=== PATIENT | male | born 1970 | race Caucasian/White ===

== ENCOUNTER 2016-06-30 12:05 | Emergency (ER) | payer MEDICARE, OTHER ==
--- NOTE | 2016-06-30 13:44 | XR ---
EXAMINATION TYPE: XR chest 2V DATE OF EXAM: 06/30/2016 1:35 PM COMPARISON: 12/04/2014 HISTORY: 45-year-old male with pain TECHNIQUE: PA and lateral views FINDINGS: The cardiomediastinal silhouette, aorta, and pulmonary vasculature are within normal limits. There is hyperinflation. Lungs and pleural spaces are clear. IMPRESSION: Hyperinflation which could relate to depth of inspiration or underlying emphysema. Clinically correla te. Otherwise, no acute cardiopulmonary process.
[2016-06-30 13:47] LABS: Basophils % (A) 1 %; CHCM 34.7; Eosinophils # (A) 0.2 k/uL (0-0.7); Eosinophils % (A) 3 %; HCT 49.4 % (39.0-53.0); HDW 2.38; HGB 16.7 gm/dL (13.0-17.5); Luc # (Auto) 0.18; Luc % (Auto) 3; Lymphocytes # (A) 1.5 k/uL (1.0-4.8); Lymphocytes % (A) 23 %; MCH 32.3 pg (25.0-35.0); MCHC 33.8 g/dL (31.0-37.0); MCV 95.4 fL (80.0-100.0); Mean Platelet Volume 6.8; Monocytes # (A) 0.3 k/uL (0-1.0); Monocytes % (A) 5 %; Neutrophils # (A) 4.2 k/uL (1.3-7.7); Neutrophils % (A) 66 %; RBC 5.18 m/uL (4.30-5.90); RDW 12.9 % (11.5-15.5); WBC 6.4 k/uL (3.8-10.6); WBC (Perox) 6.42
[2016-06-30 13:57] LABS: INR 1.4 (<1.1); Partial Thromboplastin Time 25.7 sec (22.0-30.0); Prothrombin Time 13.7 sec (9.0-12.0)
[2016-06-30 14:27] LABS: Anion Gap 10 mmol/L; Blood Urea Nitrogen 17 mg/dL (9-20); Calcium 9.6 mg/dL (8.4-10.2); Carbon Dioxide 27 mmol/L (22-30); Chloride 104 mmol/L (98-107); Glucose 97 mg/dL (74-99); Non-African American GFR(MDRD) >60 (>60 ml/min/1.73 sqM); Potassium 4.7 mmol/L (3.5-5.1); Sodium 141 mmol/L (137-145)
[2016-06-30] MEDS ORDERED: RX INFO: IV CONTRAST WAS GIVEN 1 EACH MISC MISCELLANE PRN (14:56)
--- NOTE | 2016-06-30 15:31 | CT ---
EXAMINATION TYPE: CT angio chest DATE OF EXAM: 06/30/2016 3:22 PM COMPARISON: NONE HISTORY: Pt states of left side pectoral pain, hx of PE. CT DLP: 157.6 mGycm CONTRAST: CT chest with contrast and 3D reconstruction with MIP imaging is performed with IV Contrast, patient injected with 80 mL of Omnipaque 350. Contrast-enhanced CT of the chest was performed through the course of the pulmonary arteries with rosina g and mediastinal window settings submitted. 3D reconstruction with MIP imaging was also performed. PULMONARY ARTERIES: The pulmonary arteries and their major tributaries are patent. I do not see jairo dence for sizable filling defect to suggest pulmonary embolic process. LUNGS: The lungs are clear and free of infiltrate. No evidence for atelectasis. No pulmonary nodule or mass is detected. No pleural effusion. MEDIASTINUM: Thoracic aorta is of normal caliber . The heart is not enlarged. No evidence for media stinal mass. No mediastinal lymph nodes greater than 1cm. HILAR STRUCTURES: No evidence for mass. No hilar lymph nodes greater than 1 cm. UPPER ABDOMEN: No significant abnormality is seen. IMPRESSION: 1. No evidence for Pulmonary embolism at this time.
[2016-06-30 17:08] VITALS: PULSE 78
--- NOTE | 2016-06-30 17:09 | ED ---
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 Patient states he woke up with it this morning. Patient tried Motrin without relief. Patient states because of his chronic pain he does have opiates and muscle relaxants for which he did not try. Patient got on the Internet and saw all things that could it could be so he came to the emergency room. Patient denies fever, chills, shortness breath, nausea, vomiting, diarrhea, abdominal pain. Patient states he was recently treated for Trichomonas and is currently on Flagyl. - Related Data Home Medications Medication Instructions Recorded Confirmed Albuterol Inhaler [Ventolin Hfa 2 puff INHALATION RT-TID PRN 02/13/14 06/30/16 Inhaler] Citalopram Hydrobromide [CeleXA] 20 mg PO DAILY 05/28/14 06/30/16 Montelukast [Singulair] 10 mg PO DAILY 10/23/14 06/30/16 Fluticasone Propionate [Flonase 1 spray EA NOSTRIL BID 10/30/14 06/30/16 Allergy Relief] Omeprazole [PriLOSEC] 20 mg PO AC-BID 10/30/14 06/30/16 Aspirin EC [Ecotrin Low Dose] 81 mg PO DAILY 06/30/16 06/30/16 Docusate [Colace] 100 mg PO DAILY PRN 06/30/16 06/30/16 Gabapentin [Neurontin] 300 mg PO TID 06/30/16 06/30/16 Hydrocodone/Acetaminophen [[place] 1 tab PO Q4HR PRN 06/30/16 06/30/16 7.5-325] Ibuprofen [Motrin] 800 mg PO TID PRN 06/30/16 06/30/16 Morphine Sulfate [Morphine Sulfate 15 mg PO Q12H 06/30/16 06/30/16 ER] Warfarin [Coumadin] 10 mg PO SUTUTHSA 06/30/16 06/30/16 Warfarin [Coumadin] 15 mg PO MOWEFR 06/30/16 06/30/16 metroNIDAZOLE [Flagyl] 500 mg PO BID 06/30/16 06/30/16 tiZANidine HCL [Zanaflex] 4 mg PO TID PRN 06/30/16 06/30/16 Allergies Allergy/AdvReac Type Severity Reaction Status Date / Time shellfish derived AdvReac tingling Verified 06/30/16 12:50 in throat Review of Systems ROS Statement: Those systems with pertinent positive or pertinent negative responses have been documented in the HPI. Constitutional: No fever and no chills. HENT: No congestion, no rhinorrhea and no sore throat. Eyes: No discharge and no redness. Respiratory: No cough and no shortness of breath. Cardiovascular: +chest pain and no palpitations. Gastrointestinal: No nausea, no vomiting, no abdominal pain and no diarrhea. Genitourinary: No dysuria and no hematuria. Musculoskeletal: No back pain and no arthralgias. Skin: No pallor and no rash. Neurological: No dizziness and No headaches. ROS Other: All systems not noted in ROS Statement are negative. EKG Findings - EKG Comments: EKG Findings:: EKG shows a ventricular rate of 84 bpm. Normal sinus rhythm. DC interval 154 ms, QRS duration 90 ms, QTC [address] or T-wave changes. Past Medical History Past Medical History: Asthma, Cancer, GERD/Reflux, Musculoskeletal Disorder, Pulmonary Embolus (PE) Additional Past Medical History / Comment(s): heart murmur-no tx., hx colon cancer, hx. bowel obstruction, bulging discs, INCISIONAL HERNIA, CONSTIPATION History of Any Multi-Drug Resistant Organisms: None Reported Past Surgical History: Bowel Resection, Hernia Repair, Orthopedic Surgery Additional Past Surgical History / Comment(s): , bonifacio carpal tunnel, surgery after bowel resection for obstruction/scar tissue. GREENFEILD FILTER PLACED. LAPROSCOP[employer] INC HERNIA REPAIR WITH OPEN LAPAROTOMY REPAIR WITH MESH, exploratory laparotomy with bladder repair Past Anesthesia/Blood Transfusion Reactions: No Reported Reaction Past Psychological History: Anxiety, Depression Smoking Status: Former smoker Past Alcohol Use History: Rare Past Drug Use History: None Reported - Past Family History Mother Family Medical History: Cancer General Exam - General Exam Comments Initial Comments: Constitutional: Patient appears well-developed and well-nourished. No distress. Head: Normocephalic and atraumatic. Eyes: Conjunctivae and EOM are normal. Right eye exhibits no discharge. Left eye exhibits no discharge. No scleral icterus. Neck: Normal range of motion. Neck supple. Cardiovascular: Normal rate and regular rhythm. No murmur heard. Pulmonary/Chest: Effort normal and breath sounds normal. No respiratory distress. No wheezes. Reproducible left chest wall tenderness. Abdominal: Soft. No distension. There is no tenderness. There is no rebound and no guarding. Musculoskeletal: Normal range of motion. No edema or tenderness. Neurological: Patient alert and oriented to person, place, and time. Skin: Skin is warm and dry. Not diaphoretic. Nursing notes and vitals reviewed. Limitations: no limitations Course Vital Signs 06/30/16 06/30/16 12:47 17:07 Temperature 98.2 F Pulse Rate 81 78 Respiratory 16 16 Rate Blood Pressure 167/97 160/90 O2 Sat by Pulse 97 98 Oximetry - Reevaluation(s) Reevaluation #1: Patient updated on laboratory results and his INR is 1.4. We will proceed with a CTA. Patient not requesting anything for pain for me at this time. 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 Chest wall pain is reproducible. Cardiac workup is unremarkable with a normal EKG, chest x-ray and negative troponin. Patient's INR was 1.4 for which we proceed with a CTA which was negative for PE. Patient not requesting anything for pain at this time. Prior to discharge, patient was resting comfortably in bed. Course of stay improved. Denies pain. Discussed physical exam and diagnostic tests with patient. Questions answered and patient is agreeable to discharge with close follow up with Primary Care Physician. Instructed to return to Emergency Department if symptoms worsen. Disposition Clinical Impression: Chest wall pain Disposition: HOME SELF-CARE Condition: Good Instructions: Costochondritis (ED), Chest Pain (ED) Referrals: Marika Hopkins MD [Primary Care Provider] - 1-2 days
[2016-06-30 17:30] VITALS: BP 138/93; RESP 18; TEMP 98.8
== END 2016-06-30 17:30 | disposition home or self-care (01) ==
LOC: EC 12:05
DX: R07.89 Other chest pain (principal); Z86.711 Personal history of pulmonary embolism; Z79.01 Long term (current) use of anticoagulants; G89.29 Other chronic pain; Z79.899 Other long term (current) drug therapy; Z79.51 Long term (current) use of inhaled steroids; Z79.82 Long term (current) use of aspirin; K21.9 Gastro-esophageal reflux disease without esophagitis; Z91.013 Allergy to seafood; F41.9 Anxiety disorder, unspecified; F32.9 Major depressive disorder, single episode, unspecified; Z87.891 Personal history of nicotine dependence
CPT/HCPCS: 36415; 93005; 80048; 83735; 84484; 85025; 85610; 85730; 71020; 71275; 99285; Q9967

== ENCOUNTER 2016-12-03 11:09 | Emergency (ER) | payer MEDICARE, OTHER ==
[2016-12-03 11:14] VITALS: BP 128/78; PULSE 74; RESP 16; TEMP 97.6
--- NOTE | 2016-12-03 11:26 | ED ---
Skin/Abscess/FB HPI - General Chief complaint: Skin/Abscess/Foreign Body Stated complaint: RT WRIST PAIN AND SWELLING Time Seen by Provider: 12/03/16 11:18 Source: patient, RN notes reviewed Mode of arrival: ambulatory Limitations: no limitations - History of Present Illness Initial comments: 46-year-old male presents emergency Department chief complaint right wrist pain. Patient states has been bothersome over the last few days. Patient states that he initially thought he was bitten by some horse flies a cause swelling but states that he is very painful menstrual joint. Patient denies any redness. States her some swelling. Denies fever or chills no paresthesias. Patient had prior carpal tunnel surgery by Dr. Vazquez in 2013. Patient states he is [id number]. Patient did admit to using a pump hand former helper and popping it with his right hand. Patient states that this seemed makes symptoms worse. Patient denies any proximal forearm tenderness. Patient states she does have good range of motion states his uncomfortable. - Related Data Home Medications Medication Instructions Recorded Confirmed Albuterol Inhaler [Ventolin Hfa 2 puff INHALATION RT-TID PRN 02/13/14 12/03/16 Inhaler] Citalopram Hydrobromide [CeleXA] 20 mg PO DAILY 05/28/14 12/03/16 Montelukast [Singulair] 10 mg PO DAILY 10/23/14 12/03/16 Fluticasone Propionate [Flonase 1 spray EA NOSTRIL BID 10/30/14 12/03/16 Allergy Relief] Omeprazole [PriLOSEC] 20 mg PO AC-BID 10/30/14 12/03/16 Aspirin EC [Ecotrin Low Dose] 81 mg PO DAILY 06/30/16 12/03/16 Docusate [Colace] 100 mg PO DAILY PRN 06/30/16 12/03/16 Gabapentin [Neurontin] 300 mg PO TID 06/30/16 12/03/16 Hydrocodone/Acetaminophen [[place] 1 tab PO Q4HR PRN 06/30/16 12/03/16 7.5-325] Ibuprofen [Motrin] 800 mg PO TID PRN 06/30/16 12/03/16 Morphine Sulfate [Morphine Sulfate 15 mg PO Q12H 06/30/16 12/03/16 ER] Warfarin [Coumadin] 10 mg PO SUTUTHSA 06/30/16 12/03/16 Warfarin [Coumadin] 15 mg PO MOWEFR 06/30/16 12/03/16 metroNIDAZOLE [Flagyl] 500 mg PO BID 06/30/16 12/03/16 tiZANidine HCL [Zanaflex] 4 mg PO TID PRN 06/30/16 12/03/16 Previous Rx's Medication Instructions Recorded methylPREDNISolone [Medrol Dose 4 mg PO DIRECTED #1 pack 12/03/16 Pack] Allergies Allergy/AdvReac Type Severity Reaction Status Date / Time shellfish derived AdvReac tingling Verified 12/03/16 11:14 in throat Review of Systems ROS Statement: Those systems with pertinent positive or pertinent negative responses have been documented in the HPI. ROS Other: All systems not noted in ROS Statement are negative. Past Medical History Past Medical History: Asthma, Cancer, GERD/Reflux, Musculoskeletal Disorder, Pulmonary Embolus (PE) Additional Past Medical History / Comment(s): heart murmur-no tx., hx colon cancer, hx. bowel obstruction, bulging discs, INCISIONAL HERNIA, CONSTIPATION History of Any Multi-Drug Resistant Organisms: None Reported Past Surgical History: Bowel Resection, Hernia Repair, Orthopedic Surgery Additional Past Surgical History / Comment(s): , bonifacio carpal tunnel, surgery after bowel resection for obstruction/scar tissue. GREENFEILD FILTER PLACED. LAPROSCOP[employer] HERNIA REPAIR WITH OPEN LAPAROTOMY REPAIR WITH MESH, exploratory laparotomy with bladder repair Past Anesthesia/Blood Transfusion Reactions: No Reported Reaction Past Psychological History: Anxiety, Depression Smoking Status: Former smoker Past Alcohol Use History: Rare Past Drug Use History: None Reported - Past Family History Mother Family Medical History: Cancer General Exam Limitations: no limitations General appearance: alert, in no apparent distress Head exam: Present: atraumatic, normocephalic, normal inspection Respiratory exam: Present: normal lung sounds bilaterally. Absent: respiratory distress, wheezes, rales, rhonchi, stridor Cardiovascular Exam: Present: regular rate, normal rhythm, normal heart sounds. Absent: systolic murmur, diastolic murmur, rubs, gallop, clicks Extremities exam: Present: other (Right wrist there is some swelling on the dorsal aspect of the wrist and hand there is moderate tenderness over the region patient has old surgical scar noted on the volar surface of the wrist. Patient is Refill less than 2 seconds all digits patient has full range of motion associate he has mild discomfort with range of motion of his right wrist. There is no tenderness to the proximal right forearm.) Neurological exam: Present: reflexes normal. Absent: motor sensory deficit Skin exam: Present: warm, dry Course Vital Signs 12/03/16 11:10 Temperature 97.6 F Pulse Rate 74 Respiratory 16 Rate Blood Pressure 128/78 O2 Sat by Pulse 99 Oximetry Medical Decision Making - Medical Decision Making 46-year-old male present for right wrist pain. Patient does have swelling more consistent with a sprain or tendinitis. Patient was started on Medrol Dosepak at this time as he has current pain medication. Patient advised ice rest and follow-up with his orthopedic doctor return parameters were discussed. Disposition Clinical Impression: Right wrist tendinitis Disposition: HOME SELF-CARE Condition: Stable Instructions: Wrist Injury (ED) Additional Instructions: Please return to the Emergency Department if symptoms worsen or any other concerns. Prescriptions: methylPREDNISolone [Medrol Dose Pack] 4 mg PO DIRECTED #1 pack Referrals: Marika Hopkins MD [Primary Care Provider] - 1-2 days Time of Disposition: 11:48
--- NOTE | 2016-12-03 11:42 | XR ---
EXAMINATION TYPE: XR wrist complete RT DATE OF EXAM ORDERED: 12/03/2016 HISTORY: Pain. COMPARISON: None. FINDINGS: No fracture, dislocation or other acute osseous lesion is seen. IMPRESSION: NORMAL RIGHT WRIST.
== END 2016-12-03 11:52 | disposition home or self-care (01) ==
LOC: EC 11:09
DX: M77.8 Other enthesopathies, not elsewhere classified (principal); J45.909 Unspecified asthma, uncomplicated; K21.9 Gastro-esophageal reflux disease without esophagitis; F32.9 Major depressive disorder, single episode, unspecified; M62.9 Disorder of muscle, unspecified; Z87.891 Personal history of nicotine dependence; Z79.01 Long term (current) use of anticoagulants; Z79.51 Long term (current) use of inhaled steroids; Z79.82 Long term (current) use of aspirin; Z79.899 Other long term (current) drug therapy; Z91.013 Allergy to seafood; Z86.711 Personal history of pulmonary embolism; Z85.038 Personal history of other malignant neoplasm of large intestine; Z90.49 Acquired absence of other specified parts of digestive tract; Z98.890 Other specified postprocedural states
CPT/HCPCS: 99283

== ENCOUNTER 2016-12-23 12:22 | Emergency (ER) | payer MEDICARE, OTHER ==
--- NOTE | 2016-12-23 12:34 | ED ---
General Adult HPI - General Chief complaint: Extremity Problem,Nontraumatic Stated complaint: Groin/Leg Burning Pain Time Seen by Provider: 12/23/16 12:34 Source: patient Mode of arrival: ambulatory Limitations: no limitations - History of Present Illness Initial comments: Yung Bonilla is a 46-year-old male with extensive past medical history listed below. Most significant for hernia repair with mesh malou radiates from his left gluteal region around his left hip into the anterior hip. Yung was seen by a spine in neurology [place], they advised that he obtain a computed tomography scan of his hip and pelvis to evaluate the position of the mesh as well as the structures of his hip and pelvis. On reports he is scheduled to have this done on Monday however the pain has persisted and he feels he cannot wait. He describes his pain as a burning sensation in the skin that also feels like it may be deeper. The pain radiates from a ladder around his hip. There is been no changes in his skin in that area. No rashes. Yung denies any recent trauma to his back, buttock or hip. He reports that when he saw the neurologist they recommended SI joint injections, however he wasn't comfortable receiving treatment for something that hadn't been fully worked up or diagnosed. Denies any weakness in the left leg, any numbness or tingling in the leg, any change in sensation of the leg. He reports he has been able to maintain his normal activities of daily living and normal ambulatory status. He denies any change in bowel or bladder habits, any urinary retention or incontinence any constipation or incontinence of stool. - Related Data Home Medications Medication Instructions Recorded Confirmed Montelukast [Singulair] 10 mg PO DAILY 10/23/14 12/23/16 Fluticasone Propionate [Flonase 1 spray EA NOSTRIL BID 10/30/14 12/23/16 Allergy Relief] Omeprazole [PriLOSEC] 20 mg PO AC-BID 10/30/14 12/23/16 Aspirin EC [Ecotrin Low Dose] 81 mg PO DAILY 06/30/16 12/23/16 Gabapentin [Neurontin] 300 mg PO TID 06/30/16 12/23/16 Hydrocodone/Acetaminophen [[place] 1 tab PO TID PRN 06/30/16 12/23/16 7.5-325] Ibuprofen [Motrin] 800 mg PO TID PRN 06/30/16 12/23/16 Morphine Sulfate [Morphine Sulfate 15 mg PO Q12H 06/30/16 12/23/16 ER] Warfarin [Coumadin] 10 mg PO SUMOWEFRSA 06/30/16 12/23/16 Warfarin [Coumadin] 15 mg PO TUTH 06/30/16 12/23/16 Terazosin [Hytrin] 1 mg PO HS 12/23/16 12/23/16 tiZANidine [Zanaflex] 2 mg PO TID PRN 12/23/16 12/23/16 Previous Rx's Medication Instructions Recorded Lidocaine [Lidoderm 5% Patch] 1 patch TRANSDERM DAILY #10 patch 12/23/16 Allergies Allergy/AdvReac Type Severity Reaction Status Date / Time No Known Allergies Allergy Verified 12/23/16 12:50 Review of Systems ROS Statement: Those systems with pertinent positive or pertinent negative responses have been documented in the HPI. ROS Other: All systems not noted in ROS Statement are negative. Constitutional: Denies: fever, chills, weakness Eyes: Denies: vision change ENT: Denies: throat pain Respiratory: Denies: cough Cardiovascular: Denies: chest pain, palpitations Endocrine: Denies: fatigue Gastrointestinal: Denies: abdominal pain, nausea, vomiting, diarrhea, constipation Genitourinary: Denies: urgency, dysuria, frequency, hematuria, testicular pain Musculoskeletal: Reports: arthralgia. Denies: back pain, joint swelling Skin: Reports: other (Burning sensation of left hip). Denies: rash, lesions, pruritus Neurological: Denies: headache Psychiatric: Denies: anxiety, depression Hematological/Lymphatic: Denies: easy bleeding, easy bruising Past Medical History Past Medical History: Asthma, Cancer, GERD/Reflux, Musculoskeletal Disorder, Pulmonary Embolus (PE) Additional Past Medical History / Comment(s): heart murmur-no tx., hx colon cancer, hx. bowel obstruction, bulging discs, INCISIONAL HERNIA, CONSTIPATION History of Any Multi-Drug Resistant Organisms: None Reported Past Surgical History: Bowel Resection, Hernia Repair, Orthopedic Surgery Additional Past Surgical History / Comment(s): , bonifacio carpal tunnel, surgery after bowel resection for obstruction/scar tissue. GREENFEILD FILTER PLACED. LAPROSCOPIC INC HERNIA REPAIR WITH OPEN LAPAROTOMY REPAIR WITH MESH, exploratory laparotomy with bladder repair Past Anesthesia/Blood Transfusion Reactions: No Reported Reaction Past Psychological History: Anxiety, Depression Smoking Status: Former smoker Past Alcohol Use History: Rare Past Drug Use History: None Reported - Past Family History Mother Family Medical History: Cancer General Exam Limitations: no limitations General appearance: alert, in no apparent distress Head exam: Present: atraumatic, normocephalic, normal inspection Eye exam: Present: normal appearance, PERRL, EOMI. Absent: scleral icterus, conjunctival injection, periorbital swelling ENT exam: Present: normal exam, mucous membranes moist Neck exam: Present: normal inspection. Absent: tenderness, meningismus, lymphadenopathy Respiratory exam: Present: normal lung sounds bilaterally. Absent: respiratory distress, wheezes, rales, rhonchi, stridor Cardiovascular Exam: Present: regular rate, other GI/Abdominal exam: Present: soft, normal bowel sounds. Absent: distended, tenderness, guarding, rebound, rigid Rectal exam: Present: deferred Extremities exam: Present: normal inspection, full ROM, normal capillary refill. Absent: tenderness, pedal edema, joint swelling, calf tenderness Back exam: Present: normal inspection, full ROM. Absent: tenderness, CVA tenderness (R), CVA tenderness (L), muscle spasm, paraspinal tenderness, vertebral tenderness, rash noted Neurological exam: Present: alert, oriented X3, CN II-XII intact, normal gait. Absent: abnormal gait Psychiatric exam: Present: normal affect, normal mood Skin exam: Present: warm, dry, intact, normal color. Absent: rash Course Vital Signs 12/23/16 12/23/16 12/23/16 12:27 14:12 14:49 Temperature 96.8 F L 98.4 F Pulse Rate 99 72 67 Respiratory 18 16 18 Rate Blood Pressure 128/84 124/86 125/90 O2 Sat by Pulse 99 99 98 Oximetry - Reevaluation(s) Reevaluation #1: CT results were discussed with the patient, patient expressed understanding that there is no acute findings. Advised patient to follow up with neurology and neurosurgery as scheduled. Medical Decision Making - Medical Decision Making Patient was seen and evaluated, history was obtained from the patient and his significant other at bedside Patient with chronic hip pain, currently worsening he was evaluated by neurology spinal [place] and advised to obtain a computed tomography scan. Patient feels he cannot wait to have computed tomography scan therefore he came to the emergency department today due to persistence of pain. There's been no acute change or worsening in the pain. Patient reports he has been compliant with his medications which include gabapentin and oral narcotics, however this pain has persisted Physical exam with no acute findings No neurologic deficits of left leg, no rash or change in the skin over the left buttock hip or thigh Computed tomography scan ordered per the spinal [place]'s written recommendations Urinalysis was ordered and reviewed with no signs of infection I had a long discussion with the patient regarding his pain, advised the patient that this pain does seem neuropathic in nature. Discussed with him the possibility that this is a herpetic neuralgia preceding the development of shingles, however given the patient has no history of shingles I don't feel the treatment would be indicated at this time. I advised the patient to keep a close eye on the area and if he develops any rashing he should be seen by a physician immediately. Advised them that he can return to any emergency department or his primary care physician for reevaluation. Advised the patient that if he develops any worsening pain, weakness, paresthesias in that leg he should return to the hospital for further evaluation. All questions pertaining to care were answered to the best of my abilities. Patient was prescribed Lidoderm patch for his pain. The patient was discharged home with plan to follow up with his PCP and the spinal [place] as scheduled. - Lab Data Lab Results 12/23/16 Range/Units 12:25 Urine Color Yellow Urine Appearance Clear (Clear) Urine pH 5.5 (5.0-8.0) Ur Specific [place] 1.025 (1.001-1.035) Urine Protein Trace H (Negative) Urine Glucose (UA) Trace H (Negative) Urine Ketones Negative (Negative) Urine Blood Small H (Negative) Urine Nitrite Negative (Negative) Urine Bilirubin Negative (Negative) Urine Urobilinogen 2.0 (<2.0) mg/dL Ur Leukocyte Esterase Negative (Negative) Urine RBC 6 H (0-5) /hpf Urine WBC 1 (0-5) /hpf Ur Squamous Epith Cells 1 (0-4) /hpf Urine Mucus Moderate H (None) /hpf Disposition Clinical Impression: Left hip pain Disposition: HOME SELF-CARE Condition: Good Instructions: Shingles (ED), Osteoarthritis (ED), Paresthesia (ED) Prescriptions: Lidocaine [Lidoderm 5% Patch] 1 patch TRANSDERM DAILY #10 patch Referrals: Marika Hopkins MD [Primary Care Provider] - 1-2 days
--- NOTE | 2016-12-23 13:35 | CT ---
EXAMINATION TYPE: CT pelvis wo con DATE OF EXAM: 12/23/2016 COMPARISON: NONE HISTORY: Groin and leg burning and pain CT DLP: 216.30 mGycm Automated exposure control for dose reduction was used. FINDINGS: There is a 8 mm right renal cortical calcification. Evidence of previous aortic surgery suggested. La ck of contrast significantly limits the exam. Bladder is nondistended. Prostate calcifications are no eliazar. Bowel gas pattern nonspecific. IVC filter noted. Hypertrophic change of the acetabulum noted. Oc casionally seen with femoral acetabular impingement. Hypodensity within the right kidney likely partially included on exam of 2 small characterize. Postsu rgical change in the rectosigmoid junction with a trace amount of free fluid. IMPRESSION: POST AORTIC SURGERY 8 MILLIMETER RIGHT RENAL CALCULUS. INDETERMINATE RIGHT RENAL LESION..
[2016-12-23] MEDS ORDERED: LIDOCAINE 5% PATCH TOPICAL ONE (13:39)
[2016-12-23 13:49] LABS: Appearance,Urine Clear (Clear); Bilirubin,Urine Negative (Negative); Glucose,Urine (UA) Trace (Negative); Ketones,Urine Negative (Negative); Leukocyte Esterase,Urine Negative (Negative); Mucus,Urine Moderate /hpf; Nitrite,Urine Negative (Negative); PH, Urine 5.5 (5.0-8.0); Particle Count 5588; Protein,Urine Trace (Negative); RBC,Urine 6 /hpf (0-5); Specific Gravity,Urine 1.025 (1.001-1.035); Squamous Epithelial Cell,Urine 1 /hpf (0-4); UA Billing (MACRO vs. MICRO) MICRO; WBC,Urine 1 /hpf (0-5)
[2016-12-23 14:14] VITALS: TEMP 98.4
[2016-12-23 14:50] VITALS: BP 125/90; PULSE 67; RESP 18
== END 2016-12-23 14:49 | disposition home or self-care (01) ==
LOC: EC 12:22
DX: M25.552 Pain in left hip (principal); R20.8 Other disturbances of skin sensation; J45.909 Unspecified asthma, uncomplicated; K21.9 Gastro-esophageal reflux disease without esophagitis; M62.9 Disorder of muscle, unspecified; F41.9 Anxiety disorder, unspecified; Z87.891 Personal history of nicotine dependence; Z79.01 Long term (current) use of anticoagulants; Z79.51 Long term (current) use of inhaled steroids; Z79.82 Long term (current) use of aspirin; Z79.899 Other long term (current) drug therapy; Z86.711 Personal history of pulmonary embolism
CPT/HCPCS: 72192; 81001; 99284

== ENCOUNTER → 2017-05-31 | Outpatient (CLI) | payer MEDICARE, OTHER ==
--- NOTE | 2017-05-31 11:47 | FL ---
EXAMINATION TYPE: FL barium swallow DATE OF EXAM: 05/31/2017 CLINICAL HISTORY: GERD per order. Abdominal pain with some improvement with reflux-like medications TECHNIQUE: A double contrast esophagram is performed utilizing air and barium. A total of 42 second s of fluoroscopic time was utilized during procedure. 30 spot images were saved during procedure. COMPARISON: CTA aorta February 18, 2015 FINDINGS: The esophagus shows normal motility and emptying into the stomach. No evidence of hiatal h ernia or stricture noted. No significant gastroesophageal reflux was seen during real time performanc e of this study. Incidental note is made of aortobiiliac stent graft seen during scanning. IMPRESSION: No significant abnormality is seen to account for patient's symptoms.
== END | disposition home or self-care (01) ==
LOC: RADFLWHC 09:05
PROVIDERS: ATTEND Surgery
DX: K21.9 Gastro-esophageal reflux disease without esophagitis (principal)
CPT/HCPCS: 74220

== ENCOUNTER 2017-06-25 13:55 | Emergency (ER) | payer MEDICARE, OTHER ==
[2017-06-25 14:00] VITALS: RESP 18
[2017-06-25] MEDS ORDERED: ACETAMINOPHEN TAB 500 MG TAB PO STA (14:19)
--- NOTE | 2017-06-25 14:44 | XR ---
EXAMINATION TYPE: XR chest 2V DATE OF EXAM: 06/25/2017 COMPARISON: 06/30/2016 HISTORY: Cough, congestion, fever and body aches for 3 days TECHNIQUE: Frontal and lateral views of the chest are obtained. FINDINGS: There is no focal air space opacity, pleural effusion, or pneumothorax seen. Pulmonary hyp erinflation and flattening the diaphragms relates to underlying COPD. The cardiac silhouette size is within normal limits. The osseous structures are intact. Moderate multilevel degenerative changes o f the thoracic spine are noted. IMPRESSION: 1. No acute cardiopulmonary process. No focal consolidation to suggest pneumonia. 2. Radiographic sequela of COPD.
--- NOTE | 2017-06-25 14:55 | ED ---
URI HPI - General Chief Complaint: Upper Respiratory Infection Stated Complaint: flu symptoms Time Seen by Provider: 06/25/17 14:01 Source: patient Mode of arrival: ambulatory Limitations: no limitations - History of Present Illness Initial Comments: Patient is a 46-year-old male presents with coughing and fever. Patient states that on Monday, he started having fevers as well as myalgias and coughing as well as some minor diarrhea. However, he denies any chest pain or shortness of breath and states that he is not having any abdominal pain as well. - Related Data Home Medications Medication Instructions Recorded Confirmed Montelukast [Singulair] 10 mg PO DAILY 10/23/14 06/25/17 Fluticasone Propionate [Flonase 1 spray EA NOSTRIL BID 10/30/14 06/25/17 Allergy Relief] Gabapentin [Neurontin] 300 mg PO TID 06/30/16 06/25/17 Hydrocodone/Acetaminophen [[place] 1 tab PO TID PRN 06/30/16 06/25/17 7.5-325] Ibuprofen [Motrin] 800 mg PO TID PRN 06/30/16 06/25/17 Morphine Sulfate [Morphine Sulfate 15 mg PO DAILY 06/30/16 06/25/17 ER] Albuterol Inhaler [Ventolin Hfa 1 - 2 puff INHALATION RT-Q6H PRN 05/16/17 Inhaler] Diclofenac Sodium Gel [Voltaren 2 gm TOPICAL QID 05/16/17 06/25/17 Gel] Ranitidine HCl [Zantac] 150 mg PO DAILY 06/25/17 06/25/17 Previous Rx's Medication Instructions Recorded Oseltamivir [Tamiflu] 75 mg PO Q12HR #10 cap 06/25/17 Allergies Allergy/AdvReac Type Severity Reaction Status Date / Time No Known Allergies Allergy Verified 06/25/17 14:16 Review of Systems ROS Statement: Those systems with pertinent positive or pertinent negative responses have been documented in the HPI. Constitutional: Positive for fever and chills HENT: Negative for congestion. Respiratory: Negative for chest tightness, shortness of breath and wheezing. Positive for coughing Cardiovascular: Negative for chest pain and palpitations. Gastrointestinal: Negative for abdominal pain. Negative for abdominal distention , diarrhea, nausea and vomiting. Genitourinary: Negative for dysuria. Musculoskeletal: Negative for back pain, neck pain and neck stiffness. Skin: Negative for color change. Neurological: Negative for dizziness, speech difficulty, weakness and light- headedness. Psychiatric/Behavioral: Negative for agitation and confusion. The patient is not nervous/anxious. ROS Other: All systems not noted in ROS Statement are negative. Past Medical History Past Medical History: Asthma, Cancer, Deep Vein Thrombosis (DVT), GERD/Reflux, Musculoskeletal Disorder, Pulmonary Embolus (PE) Additional Past Medical History / Comment(s): CURRENT UPPER LEFT ABDOMINAL PAIN , heart murmur-no tx., hx colon cancer, hx. bowel obstruction, bulging discs, INCISIONAL HERNIA, CHRONIC BACK PAIN. STATES NO BLOOD DISORDER DIAGNOSED History of Any Multi-Drug Resistant Organisms: None Reported Past Surgical History: Bowel Resection, Hernia Repair, Orthopedic Surgery Additional Past Surgical History / Comment(s): ivelisse carpal tunnel, surgery after bowel resection for obstruction/scar tissue. GREENFEILD FILTER PLACED. STATES NO LONGER IN USE 10/24/14 LAPROSCOPIC INC HERNIA REPAIR WITH OPEN LAPAROTOMY REPAIR WITH MESH, exploratory laparotomy with bladder repair IVELISSE LOWER LEGS STENTS X9 AT U oF M Past Anesthesia/Blood Transfusion Reactions: No Reported Reaction Past Psychological History: No Psychological Hx Reported Smoking Status: Current every day smoker Past Alcohol Use History: None Reported Past Drug Use History: None Reported - Past Family History Mother Family Medical History: Cancer General Exam - General Exam Comments Initial Comments: Physical Exam Constitutional: He is oriented to person, place, and time. He appears well- developed and well-nourished. No distress. HENT: Head: Normocephalic and atraumatic. Eyes: EOM are normal. Neck: Normal range of motion. Neck supple. Cardiovascular: Normal rate, regular rhythm, S1 normal, S2 normal and normal heart sounds. Exam reveals no gallop and no friction rub. No murmur heard. Pulmonary/Chest: Effort normal and breath sounds normal. No tachypnea and no bradypnea. No respiratory distress. He has no wheezes. He has no rales. Abdominal: Soft. Bowel sounds are normal. He exhibits no shifting dullness, no distension, no pulsatile liver, no fluid wave, no abdominal bruit and no ascites. There is no tenderness. There is no rigidity, no rebound, no guarding, no tenderness at McBurney's point and negative Beebe's sign. Genitourinary: Rectal exam shows no external hemorrhoid, no internal hemorrhoid , no fissure, no mass and no tenderness. Prostate is not tender. Musculoskeletal: Normal range of motion. Neurological: He is alert and oriented to person, place, and time. No cranial nerve deficit. Skin: Skin is warm and dry. No rash noted. He is not diaphoretic. No erythema. No pallor. Psychiatric: He has a normal mood and affect. His behavior is normal. Thought content normal. Limitations: no limitations Course Vital Signs 06/25/17 13:57 Temperature 100.5 F H Pulse Rate 98 Respiratory 18 Rate Blood Pressure 137/79 O2 Sat by Pulse 98 Oximetry Medical Decision Making - Medical Decision Making X-ray showed no evidence of acute pathology including infiltrate. Influenza swab was noted to be positive for influenza A. Patient was also given Tylenol and noted to be resting in bed comfortably prior to discharge. There is no evidence of systemic sepsis or cardiac etiology.Explained all labs and diagnostic test results and that we will discharge the patient home and patient is to follow up with PCP in 1-2 days and return to the ED if symptoms worsen. Pt is agreeable to plan. - Lab Data Lab Results 06/25/17 Range/Units 14:25 Influenza Type A RNA Detected H (Not Detectd) Influenza Type B (PCR) Not Detected (Not Detectd) - Radiology Data Radiology results: report reviewed, image reviewed Disposition Clinical Impression: Influenza A Disposition: HOME SELF-CARE Condition: Good Instructions: Influenza (ED) Prescriptions: Oseltamivir [Tamiflu] 75 mg PO Q12HR #10 cap Referrals: Marika Hopkins MD [Primary Care Provider] - 1-2 days
[2017-06-25 15:13] VITALS: BP 123/69; PULSE 85; TEMP 98.1
== END 2017-06-25 15:13 | disposition home or self-care (01) ==
LOC: EC 13:55
DX: J10.1 Influenza due to other identified influenza virus with other respiratory manifestations (principal); J45.909 Unspecified asthma, uncomplicated; K21.9 Gastro-esophageal reflux disease without esophagitis; F17.200 Nicotine dependence, unspecified, uncomplicated; Z85.038 Personal history of other malignant neoplasm of large intestine; Z79.51 Long term (current) use of inhaled steroids; Z79.891 Long term (current) use of opiate analgesic; Z79.899 Other long term (current) drug therapy
CPT/HCPCS: 71046; 87502; 99283

== ENCOUNTER 2017-09-28 16:03 | Observation (INO) | payer MEDICARE, OTHER ==
--- NOTE | 2017-09-28 16:56 | ED ---
General Adult HPI - General Chief complaint: Arrhythmia/Palpitations Stated complaint: PALPATATIONS Time Seen by Provider: 09/28/17 16:23 Source: patient, family, RN notes reviewed Mode of arrival: ambulatory Limitations: no limitations - History of Present Illness Initial comments: Patient is a pleasant 46-year-old male presenting to the emergency Department with palpitations. Onset was morning. Symptoms are somewhat less frequent however still occurring. Patient feels occasional skipping. Patient states there may be some mild fatigue or mild pressure in his chest. Patient does have a cardiac history with history of stents. No dyspnea. Symptoms are mild at this time. - Related Data Home Medications Medication Instructions Recorded Confirmed Montelukast [Singulair] 10 mg PO DAILY 10/23/14 09/28/17 Fluticasone Propionate [Flonase 1 spray EA NOSTRIL BID 10/30/14 09/28/17 Allergy Relief] Gabapentin [Neurontin] 300 mg PO TID 06/30/16 09/28/17 Hydrocodone/Acetaminophen [[place] 1 tab PO TID PRN 06/30/16 09/28/17 7.5-325] Ibuprofen [Motrin] 800 mg PO TID PRN 06/30/16 09/28/17 Morphine Sulfate [Morphine Sulfate 15 mg PO DAILY 06/30/16 09/28/17 ER] Albuterol Inhaler [Ventolin Hfa 1 - 2 puff INHALATION RT-Q6H PRN 05/16/17 Inhaler] Diclofenac Sodium Gel [Voltaren 2 gm TOPICAL QID 05/16/17 09/28/17 Gel] Ranitidine HCl [Zantac] 150 mg PO DAILY 06/25/17 09/28/17 Aspirin [Adult Low Dose Aspirin EC] 81 mg PO DAILY 09/28/17 09/28/17 Calcium Carbonate [Tums] 500 mg PO QID 09/28/17 09/28/17 L.acidoph,Paracasei, B.lactis 1 cap PO DAILY 09/28/17 09/28/17 [Probiotic] Warfarin Sodium [Coumadin] 10 mg PO MOTUWETHFR 09/28/17 09/28/17 Warfarin Sodium [Coumadin] 15 mg PO SUSA 09/28/17 09/28/17 Allergies Allergy/AdvReac Type Severity Reaction Status Date / Time No Known Allergies Allergy Verified 09/28/17 16:39 Review of Systems ROS Statement: Those systems with pertinent positive or pertinent negative responses have been documented in the HPI. ROS Other: All systems not noted in ROS Statement are negative. Constitutional: Denies: fever Eyes: Denies: eye pain ENT: Denies: ear pain Respiratory: Denies: cough Cardiovascular: Reports: palpitations Endocrine: Reports: fatigue Gastrointestinal: Denies: abdominal pain Genitourinary: Denies: dysuria Musculoskeletal: Denies: back pain Skin: Denies: rash Neurological: Denies: weakness Past Medical History Past Medical History: Asthma, Cancer, Deep Vein Thrombosis (DVT), GERD/Reflux, Musculoskeletal Disorder, Pulmonary Embolus (PE) Additional Past Medical History / Comment(s): CURRENT UPPER LEFT ABDOMINAL PAIN , heart murmur-no tx., hx colon cancer, hx. bowel obstruction, bulging discs, INCISIONAL HERNIA, CHRONIC BACK PAIN. STATES NO BLOOD DISORDER DIAGNOSED History of Any Multi-Drug Resistant Organisms: None Reported Past Surgical History: Bowel Resection, Hernia Repair, Orthopedic Surgery Additional Past Surgical History / Comment(s): ivelisse carpal tunnel, surgery after bowel resection for obstruction/scar tissue. GREENFEILD FILTER PLACED. STATES NO LONGER IN USE 10/24/14 LAPROSCOPIC INC HERNIA REPAIR WITH OPEN LAPAROTOMY REPAIR WITH MESH, exploratory laparotomy with bladder repair IVELISSE LOWER LEGS STENTS X9 AT U oF M Past Anesthesia/Blood Transfusion Reactions: No Reported Reaction Past Psychological History: No Psychological Hx Reported Smoking Status: Current every day smoker Past Alcohol Use History: None Reported Past Drug Use History: None Reported - Past Family History Mother Family Medical History: Cancer General Exam Limitations: no limitations General appearance: alert, in no apparent distress Head exam: Present: atraumatic Eye exam: Present: normal appearance, PERRL ENT exam: Present: normal oropharynx Neck exam: Present: normal inspection Respiratory exam: Present: normal lung sounds bilaterally Cardiovascular Exam: Present: regular rate, normal rhythm, normal heart sounds Expanded Peripheral pulses: 2+: Radial (R), Radial (L), Posterior Tibialis (R), Posterior Tibialis (L) GI/Abdominal exam: Present: soft. Absent: tenderness Extremities exam: Present: normal inspection. Absent: pedal edema, calf tenderness Neurological exam: Present: alert Psychiatric exam: Present: normal affect, normal mood Skin exam: Present: normal color Course Vital Signs 09/28/17 09/28/17 09/28/17 16:05 17:59 18:39 Temperature 98.1 F Pulse Rate 80 87 70 Respiratory 20 16 16 Rate Blood Pressure 157/100 145/95 171/97 O2 Sat by Pulse 99 99 99 Oximetry EKG Findings - EKG Comments: EKG Findings:: normal sinus rhythm 76. W[place] 156. QRS 100. QT 364. QTC 49. Normal axis. Q wave in lead V2. No acute ST change. Previous EKG reviewed. Medical Decision Making - Medical Decision Making patient was reevaluated and updated. Case was discussed in detail with practitioner Yu ramirez, who will admit for Dr. Murcia, covering for Dr. Hopkins. - Lab Data Result diagrams: 09/28/17 16:57 09/28/17 16:57 Lab Results 09/28/17 09/28/17 09/28/17 Range/Units 16:57 16:57 16:57 WBC 6.7 (3.8-10.6) k/uL RBC 4.90 (4.30-5.90) m/uL Hgb 15.6 (13.0-17.5) gm/dL Hct 44.9 (39.0-53.0) % MCV 91.7 (80.0-100.0) fL MCH 31.9 (25.0-35.0) pg MCHC 34.7 (31.0-37.0) g/dL RDW 12.8 (11.5-15.5) % Plt Count 269 (150-450) k/uL Neutrophils % 54 % Lymphocytes % 34 % Monocytes % 6 % Eosinophils % 3 % Basophils % 0 % Neutrophils # 3.6 (1.3-7.7) k/uL Lymphocytes # 2.3 (1.0-4.8) k/uL Monocytes # 0.4 (0-1.0) k/uL Eosinophils # 0.2 (0-0.7) k/uL Basophils # 0.0 (0-0.2) k/uL PT (9.0-12.0) sec INR (<1.2) APTT (22.0-30.0) sec Sodium 143 (137-145) mmol/L Potassium 4.5 (3.5-5.1) mmol/L Chloride 107 (98-107) mmol/L Carbon Dioxide 25 (22-30) mmol/L Anion Gap 11 mmol/L BUN 17 (9-20) mg/dL Creatinine 0.70 (0.66-1.25) mg/dL Est GFR (CKD-EPI)AfAm >90 (>60 ml/min/1.73 sqM) Est GFR (CKD-EPI)NonAf >90 (>60 ml/min/1.73 sqM) Glucose 94 (74-99) mg/dL Calcium 9.4 (8.4-10.2) mg/dL Magnesium 1.8 (1.6-2.3) mg/dL Total Bilirubin 0.4 (0.2-1.3) mg/dL AST 23 (17-59) U/L ALT 42 (21-72) U/L Alkaline Phosphatase 70 (38-126) U/L Total Creatine Kinase 85 (55-170) U/L CK-MB (CK-2) 0.4 (0.0-2.4) ng/mL CK-MB (CK-2) Rel Index 0.5 Troponin I <0.012 (0.000-0.034) ng/mL Total Protein 6.4 (6.3-8.2) g/dL Albumin 4.2 (3.5-5.0) g/dL TSH 1.130 (0.465-4.680) mIU/L Free T4 1.19 (0.78-2.19) ng/dL Free T3 pg/mL 4.6 (2.8-5.3) pg/ml 09/28/17 Range/Units 16:57 WBC (3.8-10.6) k/uL RBC (4.30-5.90) m/uL Hgb (13.0-17.5) gm/dL Hct (39.0-53.0) % MCV (80.0-100.0) fL MCH (25.0-35.0) pg MCHC (31.0-37.0) g/dL RDW (11.5-15.5) % Plt Count (150-450) k/uL Neutrophils % % Lymphocytes % % Monocytes % % Eosinophils % % Basophils % % Neutrophils # (1.3-7.7) k/uL Lymphocytes # (1.0-4.8) k/uL Monocytes # (0-1.0) k/uL Eosinophils # (0-0.7) k/uL Basophils # (0-0.2) k/uL PT 12.2 H (9.0-12.0) sec INR 1.3 H (<1.2) APTT 24.9 (22.0-30.0) sec Sodium (137-145) mmol/L Potassium (3.5-5.1) mmol/L Chloride (98-107) mmol/L Carbon Dioxide (22-30) mmol/L Anion Gap mmol/L BUN (9-20) mg/dL Creatinine (0.66-1.25) mg/dL Est GFR (CKD-EPI)AfAm (>60 ml/min/1.73 sqM) Est GFR (CKD-EPI)NonAf (>60 ml/min/1.73 sqM) Glucose (74-99) mg/dL Calcium (8.4-10.2) mg/dL Magnesium (1.6-2.3) mg/dL Total Bilirubin (0.2-1.3) mg/dL AST (17-59) U/L ALT (21-72) U/L Alkaline Phosphatase (38-126) U/L Total Creatine Kinase (55-170) U/L CK-MB (CK-2) (0.0-2.4) ng/mL CK-MB (CK-2) Rel Index Troponin I (0.000-0.034) ng/mL Total Protein (6.3-8.2) g/dL Albumin (3.5-5.0) g/dL TSH (0.465-4.680) mIU/L Free T4 (0.78-2.19) ng/dL Free T3 pg/mL (2.8-5.3) pg/ml - Radiology Data Radiology results: image reviewed (Chest x-ray shows no acute process. Hyperinflation.) Disposition Clinical Impression: Palpitations, Chest pain Disposition: ADMITTED IP TO THIS [facility] Is patient prescribed a controlled substance at d/c from ED?: No Referrals: Marika Hopkins MD [Primary Care Provider] - 1-2 days Decision Time: 18:58
[2017-09-28 17:04] LABS: Basophils % (A) 0 %; Eosinophils # (A) 0.2 k/uL (0-0.7); Eosinophils % (A) 3 %; HCT 44.9 % (39.0-53.0); HGB 15.6 gm/dL (13.0-17.5); Lymphocytes # (A) 2.3 k/uL (1.0-4.8); Lymphocytes % (A) 34 %; MCH 31.9 pg (25.0-35.0); MCHC 34.7 g/dL (31.0-37.0); MCV 91.7 fL (80.0-100.0); Mean Platelet Volume 6.7; Monocytes # (A) 0.4 k/uL (0-1.0); Monocytes % (A) 6 %; Neutrophils # (A) 3.6 k/uL (1.3-7.7); Neutrophils % (A) 54 %; Platelet Count 269 k/uL (150-450); RDW 12.8 % (11.5-15.5); WBC 6.7 k/uL (3.8-10.6)
[2017-09-28 17:14] LABS: ALT 42 U/L (21-72); AST 23 U/L (17-59); Albumin 4.2 g/dL (3.5-5.0); Alkaline Phosphatase 70 U/L (38-126); Anion Gap 11 mmol/L; Blood Urea Nitrogen 17 mg/dL (9-20); Calcium 9.4 mg/dL (8.4-10.2); Carbon Dioxide 25 mmol/L (22-30); Chloride 107 mmol/L (98-107); Glucose 94 mg/dL (74-99); Magnesium 1.8 mg/dL (1.6-2.3); Potassium 4.5 mmol/L (3.5-5.1); Sodium 143 mmol/L (137-145); Total Bilirubin 0.4 mg/dL (0.2-1.3); Total Protein 6.4 g/dL (6.3-8.2)
[2017-09-28 17:18] LABS: INR 1.3 (<1.2); Partial Thromboplastin Time 24.9 sec (22.0-30.0); Prothrombin Time 12.2 sec (9.0-12.0)
[2017-09-28 17:19] LABS: Creatine Kinase 85 U/L (55-170)
--- NOTE | 2017-09-28 17:26 | XR ---
EXAMINATION TYPE: XR chest 2V DATE OF EXAM: 09/28/2017 COMPARISON: 06/25/2017 INDICATION: Dysrhythmia heart palpitations asthma TECHNIQUE: Frontal and lateral views of the chest are obtained. FINDINGS: The heart size is normal. The pulmonary vasculature is normal. The lungs are clear. Hyperinflation is present. IMPRESSION: 1. No acute pulmonary process. 2. Hyperinflation which can be related to asthma.
[2017-09-28 17:31] LABS: T4, Free (Free Thyroxine) 1.19 ng/dL (0.78-2.19)
[2017-09-28 17:32] LABS: Creatine Kinase MB 0.4 ng/mL (0.0-2.4); Troponin I <0.012 ng/mL (0.000-0.034)
[2017-09-28] MEDS ORDERED: NITROGLYCERIN SL TABS 0.4 MG TAB SUBLINGUAL PRN (18:58)
[2017-09-28 22:28] VITALS: BMI 18.1
[2017-09-28] MEDS ORDERED: RX INFO: IV CONTRAST WAS GIVEN 1 EACH MISC MISCELLANE PRN (22:45)
[2017-09-28] MEDS ORDERED: HEPARIN SODIUM,PORCINE 10,000 UNIT/ML 1 ML VIAL IV ONE (22:45)
[2017-09-28] MEDS ORDERED: HEPARIN SOD,PORK IN 0.45% NACL 25,000 UNIT in 0.45% NACL 1 500ML.BAG IV SCH (22:45)
[2017-09-28] MEDS ORDERED: DICLOFENAC SODIUM GEL 100 GM TUBE TOPICAL PRN (22:46)
[2017-09-28] MEDS ORDERED: ALBUTEROL NEBULIZED 2.5 MG/3 ML INHALATION PRN (22:46)
[2017-09-28] MEDS ORDERED: HYDROcodone/APAP 7.5-325MG 1 EACH TAB PO PRN (22:46)
[2017-09-28 22:50] LABS: Creatine Kinase 89 U/L (55-170)
[2017-09-28] MEDS ORDERED: IBUPROFEN 800 MG TAB PO PRN (22:59)
[2017-09-28] MEDS ORDERED: WARFARIN 10 MG TAB PO SCH (23:00)
[2017-09-28 23:01] LABS: Creatine Kinase MB 0.4 ng/mL (0.0-2.4); Troponin I <0.012 ng/mL (0.000-0.034)
[2017-09-28] MEDS: HEPARIN SODIUM,PORCINE 5,000 UNIT/ML 1 ML VIAL IV PRN (23:14)
--- NOTE | 2017-09-28 23:33 | HP ---
HISTORY AND PHYSICAL DATE OF SERVICE: 09/28/2017 CHIEF COMPLAINT: Palpitation. HISTORY OF PRESENT ILLNESS: This 46-year-old gentleman with a past medical history of multiple medical problems, including history of asthma, history of DVT, GERD, history of pulmonary embolism, history of bowel resection, hernia repair, history of Jorge filter placement, being followed by Dr. Hopkins in the outpatient setting, was complaining of palpitations. The patient had persistent palpitations. Blood pressure also found to be slightly elevated and the patient also complains of some fatigue and mild pressure in the chest. The patient came to [facility] and admitted for further evaluation and treatment. An EKG on admission showed prominent T waves and a chest x-ray showed no acute abnormality and the patient admitted for further evaluation and treatment. INR is 1.3 and troponins are negative. There is no history of any fever, rigors. No history of headache, loss of consciousness or seizures. PAST MEDICAL HISTORY: History of DVT, asthma, GERD, DJD, pulmonary embolism. MEDICATIONS PRIOR TO ADMISSION: Include home medications: 1. Tums 500 mg p.o. b.i.d. 2. Coumadin 15 mg Monday, Monday and Coumadin 10 mg Monday, Monday, , Monday. 3. Zantac 150 mg p.o. daily. 4. Morphine sulfate 15 mg p.o. daily. 5. Singulair 10 mg daily. 6. Probiotic 1 capsule p.o. daily. 7. Motrin 800 mg p.o. t.i.d. p.r.n. 8. [place] 7.5 t.i.d. p.r.n. 9. Neurontin 300 mg p.o. t.i.d. 10.Flonase for allergies. 11.Voltaren gel 2 g q.i.d. 12.Ventolin 1 to 1-2 puffs every 6 hours p.r.n. 13.Ecotrin 81 mg p.o. daily. ALLERGIES: None. FAMILY HISTORY: History of cancer in the family. SOCIAL HISTORY: History of smoking on a daily basis. No history of alcohol intake. REVIEW OF SYSTEMS: ENT: No diminished hearing, diminished vision. CARDIOVASCULAR: As mentioned earlier. RESPIRATORY: As mentioned earlier. GI: No nausea or vomiting. : No dysuria. NERVOUS: No numbness or weakness. ALLERGY/IMMUNOLOGY: No asthma or hay fever. MUSCULOSKELETAL: As mentioned earlier. HEMATOLOGY/ONCOLOGY: No history of anemia. ENDOCRINE: As mentioned earlier. CONSTITUTIONAL: As mentioned earlier. DERMATOLOGY: Negative. RHEUMATOLOGY: Negative. PSYCHIATRY: As mentioned earlier. PHYSICAL EXAMINATION: The patient alert and oriented x3. Pulse 70, blood pressure 130/80, respirations 18, temperature 97.6, pulse ox 98% on 2L. HEENT: Conjunctivae normal. Oral mucosa moist. NECK: No jugular venous distention. No carotid bruits. No lymph node enlargement. CARDIOVASCULAR: S1, S2 muffled. No S3. No S4. RESPIRATORY: Breath sounds diminished in the bases. No rhonchi. No crackles. ABDOMEN: Soft, nontender. No mass palpable. LEGS: No edema. No swelling. NERVOUS SYSTEM: Higher functions as mentioned earlier. Moves all 4 limbs. No focal motor or sensory deficits. LYMPHATIC: No lymphadenopathy in neck or axillae. SKIN: No ulcer, rash or bleeding. LABS: CBC within normal limits. INR is 1.3. CMP within normal limits. ASSESSMENT: 1. Palpitations with chest pain for evaluation. Rule out coronary artery disease. 2. Rule out acute pulmonary embolus. 3. History of asthma. 4. History of deep venous thrombosis. 5. Gastroesophageal reflux disease. 6. History of pulmonary embolus. 7. History of colon cancer and bowel obstruction. 8. History of inferior vena cava Jorge filter placement. 9. History of nicotine dependence. RECOMMENDATIONS AND DISCUSSION: In this 46-year-old gentleman who presented with multiple complex medical issues, will monitor the patient closely, continue the current medical management and will obtain a cardiology consultation for possible cardiac workup. I would also recommend a CT angio of the chest to rule out the possibility of pulmonary embolism and continue to monitor. Otherwise, IV heparin also will be ordered. Further recommendations to follow. A copy of dictation will be forwarded to Dr. Hopkins, who is the primary physician. MMODELLL / IJN: [id number] /
[2017-09-29] MEDS: HEPARIN SODIUM,PORCINE 5,000 UNIT/ML 1 ML VIAL IV PRN (00:27)
[2017-09-29 00:53] VITALS: TEMP 98.1
--- NOTE | 2017-09-29 00:56 | CT ---
EXAMINATION TYPE: CT angio chest DATE OF EXAM: 09/29/2017 12:30 AM COMPARISON: 06/30/2016 HISTORY: Hx. of PE's chest pain CT DLP: 149.80 mGycm Automated exposure control for dose reduction was used. CONTRAST: CTA scan of the thorax is performed with IV Contrast, patient injected with 80 mL of Isovue 370, pulm onary embolism protocol. Are 3-D post processed images.. FINDINGS: Heart size is normal. There is no pericardial effusion. There is no evidence of a pulmonary mass. The re is no pleural effusion. There is normal contrast opacification of the pulmonary arteries. I see no filling defect. There are no hilar masses. There is no mediastinal adenopathy. There is minimal scar ring or subsegmental atelectasis at the lung bases. There is mild pulmonary emphysema. IMPRESSION: NO EVIDENCE OF PULMONARY EMBOLISM. MINIMAL SCARRING AND SUBSEGMENTAL ATELECTASIS AT THE LUNG BASES. N O ADVERSE CHANGE COMPARED TO OLD EXAM.
[2017-09-29 05:55] LABS: Basophils % (A) 1 %; Eosinophils # (A) 0.2 k/uL (0-0.7); Eosinophils % (A) 3 %; HGB 14.7 gm/dL (13.0-17.5); Lymphocytes # (A) 2.6 k/uL (1.0-4.8); Lymphocytes % (A) 38 %; MCH 31.1 pg (25.0-35.0); MCHC 33.5 g/dL (31.0-37.0); MCV 92.8 fL (80.0-100.0); Mean Platelet Volume 6.9; Monocytes # (A) 0.4 k/uL (0-1.0); Monocytes % (A) 5 %; Neutrophils # (A) 3.6 k/uL (1.3-7.7); Neutrophils % (A) 52 %; Platelet Count 242 k/uL (150-450); RBC 4.74 m/uL (4.30-5.90); RDW 13.1 % (11.5-15.5); WBC 6.9 k/uL (3.8-10.6)
[2017-09-29 06:11] LABS: Glucose 93 mg/dL (74-99); Triglycerides 57 mg/dL (<150)
[2017-09-29 06:12] LABS: Anion Gap 9 mmol/L; Blood Urea Nitrogen 18 mg/dL (9-20); Carbon Dioxide 27 mmol/L (22-30); Chloride 106 mmol/L (98-107); Cholesterol 195 mg/dL (<200); HDL Cholesterol 53 mg/dL (40-60); LDL Cholesterol,Calculated 131 mg/dL (0-99); Potassium 4.2 mmol/L (3.5-5.1); Sodium 142 mmol/L (137-145)
[2017-09-29 06:17] LABS: Creatine Kinase 73 U/L (55-170)
[2017-09-29 06:30] LABS: Creatine Kinase MB 0.3 ng/mL (0.0-2.4); Troponin I <0.012 ng/mL (0.000-0.034)
[2017-09-29 08:29] VITALS: BP 113/73; PULSE 81; RESP 18
[2017-09-29] MEDS ORDERED: MONTELUKAST 10 MG TAB PO SCH (09:00)
[2017-09-29] MEDS ORDERED: MORPHINE SULFATE ER 15 MG TABLET PO SCH (09:00)
[2017-09-29] MEDS ORDERED: FAMOTIDINE 20 MG TAB PO SCH (09:00)
[2017-09-29] MEDS ORDERED: ASPIRIN 325 MG TAB PO SCH (09:00)
[2017-09-29] MEDS ORDERED: GABAPENTIN 300 MG CAP PO SCH (09:00)
[2017-09-29] MEDS ORDERED: LACTOBACILLUS ACIDOPH & BULGAR 1 EACH PACKET PO SCH (09:00)
[2017-09-29] MEDS ORDERED: FLUTICASONE 50MCG/SPRAY NASAL 16GM EA NOSTRIL SCH (09:00)
[2017-09-29] MEDS ORDERED: CALCIUM CARBONATE 500 MG CHEWABLE PO SCH (09:00)
[2017-09-29] MEDS ORDERED: ASPIRIN 81 MG PO SCH (09:00)
[2017-09-29] MEDS ORDERED: NICOTINE 14MG/24HR PATCH TRANSDERM SCH (09:15)
--- NOTE | 2017-09-29 09:43 | ECHOF ---
Referral Reason: MEASUREMENTS -------- HEIGHT: 180.3 cm WEIGHT: 60.3 kg BP: IVSd: 0.9 cm (0.6 - 1.1) LVIDd: 4.1 cm (3.9 - 5.3) LVPWd: 1.1 cm (0.6 - 1.1) IVSs: 1.5 cm LVIDs: 2.4 cm LVPWs: 1.6 cm LAESV Index (A-L): 18.98 ml/m Ao Diam: 3.1 cm (2.0 - 3.7) AV Cusp: 2.2 cm (1.5 - 2.6) LA Diam: 2.3 cm (2.7 - 3.8) MV EXCURSION: 21.258 mm (> 18.000) MV EF SLOPE: 118 mm/s (70 - 150) EPSS: 0.2 cm MV E Jose: 0.68 m/s MV DecT: 224 ms MV A Jose: 0.51 m/s MV E/A Ratio: 1.34 RAP: 5.00 mmHg RVSP: 8.27 mmHg FINDINGS -------- Sinus rhythm. This was a technically good study. The left ventricular size is normal. Left ventricular wall thickness is normal. Overall left vent ricular systolic function is normal with, an EF between 55 - 60 %. The right ventricle is normal in size and function. The left atrium is normal in size. The right atrium is normal in size. The aortic valve is trileaflet, and appears structurally normal. No aortic stenosis or regurgitation. There is trace mitral regurgitation , predominately a posteriorly directed jet. Trace tricuspid regurgitation present. The right ventricular systolic pressure, as measured by Dopp ler, is 8.27mmHg. Pulmonic valve appears structurally normal. The aortic root size is normal. The pericardium is normal. CONCLUSIONS -------- 1. Sinus rhythm. 2. This was a technically good study. 3. The left ventricular size is normal. 4. Left ventricular wall thickness is normal. 5. Overall left ventricular systolic function is normal with, an EF between 55 - 60 %. 6. The right ventricle is normal in size and function. 7. The left atrium is normal in size. 8. The right atrium is normal in size. 9. The aortic valve is trileaflet, and appears structurally normal. No aortic stenosis or regurgitati on. 10. There is trace mitral regurgitation. 11. , predominately a posteriorly directed jet. 12. Trace tricuspid regurgitation present. 13. The right ventricular systolic pressure, as measured by Doppler, is 8.27mmHg. 14. Pulmonic valve appears structurally normal. 15. The aortic root size is normal. 16. The pericardium is normal. HAT BAND ATTACHER: Susan Antonio RDCS
--- NOTE | 2017-09-29 10:01 | P.CRDCN ---
History of Present Illness Consult date: 09/29/17 History of present illness: Mr. Bonilla is a pleasant 46-year-old male past medical history significant for asthma, DVT, PE, [place] filter, gastroesophageal reflux disease, current everyday smoker and chronic back pain. He denies history of coronary artery disease and has never seen a motor room controller for any reason. We have been asked to see him in consultation for evaluation of his complaints of palpitations. He states he woke up yesterday in his usual state of health and drank 2 cups of coffee, he then started with his heart fluttering and racing. It seemed that his heart was irregular and he could feel his heart skipping beats. Denies chest pain, shortness of breath, dizziness, nausea, vomiting or diaphoresis. The palpitations were all day long. Telemetry tracings since admission show 1 PVC around midnight last night. He also describes that over the previous 2-3 yrs he feels an intermittent pain in the left shoulder that radiates around to the left axillary region. The pain he is describing hasn't occurred in the last 30 days. EKG reveals sinus mechanism with no acute ST or T-wave abnormalities. Chest xray is negative for an acute cardiopulmonary process with hyperinflation secondary to asthma. CT angios of the chest reveals no evidence of pulmonary embolism with minimal scarring and subsegmental atelectasis at the lung bases. Laboratory data reviewed, hgb 14.7, plt 242, potassium 4.2, sodium 142, creatinine 0.72, magnesium 1.8, cardiac enzymes negative x3, LDL 131, HDL 53, TSH 1.13, free T4 1.19, INR 1.3. Current cardiac medications include coumadin and aspirin 81 mg daily. Echocardiogram we obtained this morning revealed preserved LV systolic function with EF 55-60% with no evidence of valvular heart disease. Review of Systems At the time of my exam: CONSTITUTIONAL: Denies fever. Denies chills. EYES: Denies blurred vision. Denies vision changes. Denies eye pain. EARS, NOSE, MOUTH & THROAT: Denies headache. Denies sore throat. Denies ear pain. CARDIOVASCULAR: Denies chest pain. Denies shortness of breath. Denies orthopnea. Denies PND. Denies palpitations. RESPIRATORY: Denies cough. GASTROINTESTINAL: Denies abdominal pain. Denies diarrhea. Denies constipation. Denies nausea. Denies vomiting. MUSCULOSKELETAL: Denies myalgias. INTEGUMENTARY: Denies pruitis. Denies rash. NEUROLOGIC: Denies numbness. Denies tingling. Denies weakness. PSYCHIATRIC: Denies anxiety. Denies depression. ENDOCRINE: Denies fatigue. Denies weight change. Denies polydipsia. Denies polyurina. GENITOURINARY: Denies burning, hematuria or urgency with micturation. HEMATOLOGIC: Denies history of anemia. Denies bleeding. Past Medical History Past Medical History: Asthma, Cancer, Deep Vein Thrombosis (DVT), GERD/Reflux, Musculoskeletal Disorder, Pulmonary Embolus (PE) Additional Past Medical History / Comment(s): CURRENT UPPER LEFT ABDOMINAL PAIN , heart murmur-no tx., hx colon cancer, hx. bowel obstruction, bulging discs, INCISIONAL HERNIA, CHRONIC BACK PAIN. STATES NO BLOOD DISORDER DIAGNOSED History of Any Multi-Drug Resistant Organisms: None Reported Past Surgical History: Bowel Resection, Hernia Repair, Orthopedic Surgery Additional Past Surgical History / Comment(s): rt inguinal hernia repair.bonifacio carpal tunnel, hx bowel resection d/t cancer then 2nd sx d/t obstruction/scar tissue. GREENFEILD FILTER PLACED. STATES NO LONGER IN USE. 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 pt stated has had multiple (non cardiac) [facility] Past Anesthesia/Blood Transfusion Reactions: No Reported Reaction Smoking Status: Current every day smoker - Past Family History Mother Family Medical History: Cancer Medications and Allergies Home Medications Medication Instructions Recorded Confirmed Type Montelukast [Singulair] 10 mg PO DAILY 10/23/14 09/28/17 History Fluticasone Propionate [Flonase 1 spray EA NOSTRIL BID 10/30/14 09/28/17 History Allergy Relief] Gabapentin [Neurontin] 300 mg PO TID 06/30/16 09/28/17 History Hydrocodone/Acetaminophen [Urich 1 tab PO TID PRN 06/30/16 09/28/17 History 7.5-325] Morphine Sulfate [Morphine Sulfate 15 mg PO DAILY 06/30/16 09/28/17 History ER] Albuterol Inhaler [Ventolin Hfa 1 - 2 puff INHALATION RT-Q6H PRN 05/16/17 History Inhaler] Diclofenac Sodium Gel [Voltaren 2 gm TOPICAL QID PRN 05/16/17 09/28/17 History Gel] Ranitidine HCl [Zantac] 150 mg PO DAILY 06/25/17 09/28/17 History Aspirin [Adult Low Dose Aspirin EC] 81 mg PO DAILY 09/28/17 09/28/17 History Calcium Carbonate [Tums] 500 mg PO BID 09/28/17 09/28/17 History L.acidoph,Paracasei, B.lactis 1 cap PO DAILY 09/28/17 09/28/17 History [Probiotic] Ibuprofen [Motrin] 400 mg PO TID PRN #0 09/29/17 09/28/17 Rx Nicotine 14Mg/24Hr Patch [Habitrol] 1 patch TRANSDERM DAILY #30 patch 09/29/17 Rx Allergies Allergy/AdvReac Type Severity Reaction Status Date / Time No Known Allergies Allergy Verified 09/28/17 22:20 Physical Exam Vitals: Vital Signs Temp Pulse Pulse Resp BP BP Pulse Ox 09/29/17 04:00 98.1 F 83 16 113/64 94 L 09/29/17 00:00 98.1 F 90 16 141/89 97 09/28/17 22:52 16 09/28/17 22:10 97.6 F 65 16 158/96 95 09/28/17 21:30 70 18 133/89 98 09/28/17 20:22 72 18 139/88 98 09/28/17 18:39 70 16 171/97 99 09/28/17 17:59 87 16 145/95 99 09/28/17 16:05 98.1 F 80 20 157/100 99 Intake and Output 09/28/17 09/29/17 09/29/17 22:59 06:59 14:59 Intake Total 30 152.586 Balance 30 152.586 Intake: Amount of Fluid Infused ( 30 ml) Intake, IV Titration 152.586 Amount Heparin Sod,Pork in 0.45% 152.586 NaCl 25,000 unit In 0.45 % NaCl 1 500ml.bag @ 18 UNITS/KG/HR 21.85 mls/hr IV .[id number] [facility] Rx#: [id number] Other: Weight 60.7 kg Blood pressure 113/73 heart rate 81 afebrile maintaining oxygen saturation on room air GENERAL: This is a 46-year-old male in no apparent distress at the time of my examination. HEENT: Head is atraumatic, normocephalic. Pupils are equal, round. Sclerae anicteric. Conjunctivae are clear. Mucous membranes of the mouth are moist. Neck is supple. There is no jugular venous distention. No carotid bruit is heard. LUNGS: Clear to auscultation no wheezes, rales or rhonchi. No chest wall tenderness is noted on palpation or with deep breathing. HEART: Regular rate and rhythm without murmurs, rubs or gallops. S1 and S2 heard. ABDOMEN: Soft, nontender. Bowel sounds are heard. No organomegaly noted. EXTREMITIES: No evidence of peripheral edema and no calf tenderness noted. VASCULAR: Radial and dorsalis pedis pulses palpated, no evidence of clubbing. NEUROLOGIC: Patient is awake, alert and oriented x3. Results 09/29/17 05:30 09/29/17 05:30 Cardiac Enzymes 09/28/17 09/28/17 09/28/17 Range/Units 16:57 16:57 22:09 AST 23 (17-59) U/L CK-MB (CK-2) 0.4 0.4 (0.0-2.4) ng/mL Troponin I <0.012 <0.012 (0.000-0.034) ng/mL 09/29/17 Range/Units 05:30 AST (17-59) U/L CK-MB (CK-2) 0.3 (0.0-2.4) ng/mL Troponin I <0.012 (0.000-0.034) ng/mL Coagulation 09/28/17 09/29/17 Range/Units 16:57 05:30 PT 12.2 H (9.0-12.0) sec APTT 24.9 86.9 H (22.0-30.0) sec Lipids 09/29/17 Range/Units 05:30 Triglycerides 57 (<150) mg/dL Cholesterol 195 (<200) mg/dL HDL Cholesterol 53 (40-60) mg/dL CBC 09/28/17 09/29/17 Range/Units 16:57 05:30 WBC 6.7 6.9 (3.8-10.6) k/uL RBC 4.90 4.74 (4.30-5.90) m/uL Hgb 15.6 14.7 (13.0-17.5) gm/dL Hct 44.9 44.0 (39.0-53.0) % Plt Count 269 242 (150-450) k/uL Comprehensive Metabolic Panel 09/28/17 09/29/17 Range/Units 16:57 05:30 Sodium 143 142 (137-145) mmol/L Potassium 4.5 4.2 (3.5-5.1) mmol/L Chloride 107 106 (98-107) mmol/L Carbon Dioxide 25 27 (22-30) mmol/L BUN 17 18 (9-20) mg/dL Creatinine 0.70 0.72 (0.66-1.25) mg/dL Glucose 94 93 (74-99) mg/dL Calcium 9.4 9.0 (8.4-10.2) mg/dL AST 23 (17-59) U/L ALT 42 (21-72) U/L Alkaline Phosphatase 70 (38-126) U/L Total Protein 6.4 (6.3-8.2) g/dL Albumin 4.2 (3.5-5.0) g/dL Current Medications Generic Name Dose Route Start Last Admin Trade Name Freq PRN Reason Stop Dose Admin Hydrocodone Bitart/Acetaminophen 1 each 09/28/17 22:46 Urich 7.5-325 PO TID PRN For severe pain Albuterol Sulfate 2.5 mg 09/28/17 22:46 Ventolin Nebulized INHALATION RT-Q6H PRN Shortness Of Breath Aspirin 81 mg 09/29/17 09:00 Aspirin PO DAILY [facility] Calcium Carbonate/Glycine 500 mg 09/29/17 09:00 Tums PO BID [facility] Diclofenac Sodium 2 gm 09/28/17 22:46 Voltaren Gel TOPICAL QID PRN For mild pain Famotidine 20 mg 09/29/17 09:00 Pepcid PO DAILY [facility] Fluticasone Propionate 1 spray 09/29/17 09:00 Flonase Nasal [place] EA NOSTRIL BID [facility] Gabapentin 300 mg 09/29/17 09:00 Neurontin PO TID [facility] Heparin Sodium (Porcine) 0 unit 09/28/17 22:45 09/29/17 00:27 Heparin IV 5,000 unit PER PROTOCOL PRN Administration Low PTT Protocol Heparin Sodium/Sodium Chloride 500 mls @ 21.85 mls/hr 09/28/17 22:45 06:11 25,000 unit/ Sodium Chloride IV 16 units/kg/hr .[id number] [facility] 19.42 mls/hr Protocol Titration 18 UNITS/KG/HR Ibuprofen 800 mg 09/28/17 22:59 Motrin PO TID PRN For moderate pain Lactobacillus Acidoph/Bulgaricus 1 each 09/29/17 09:00 Lactinex PO DAILY [facility] Miscellaneous Information 1 each 09/28/17 22:45 Rx Info: Iv Contrast Was Given MISCELLANE 09/30/17 22:45 DAILY PRN Per Protocol Montelukast Sodium 10 mg 09/29/17 09:00 Singulair PO DAILY [facility] Morphine Sulfate 15 mg 09/29/17 09:00 Ms Contin PO DAILY [facility] Nitroglycerin 0.4 mg 09/28/17 18:58 Nitrostat SUBLINGUAL Q5M PRN Chest Pain Sodium Chloride 10 ml 09/28/17 21:00 09/28/17 23:12 Saline Flush IV 10 ml BID [facility] Administration Warfarin Sodium 15 mg 09/30/17 18:00 Coumadin PO [id number]@1800 [facility] Warfarin Sodium 10 mg 09/28/17 23:00 09/29/17 00:26 Coumadin PO Not Given [id number]@1800 [facility] Intake and Output 09/28/17 09/29/17 09/29/17 22:59 06:59 14:59 Intake Total 30 152.586 Balance 30 152.586 Intake: Amount of Fluid Infused ( 30 ml) Intake, IV Titration 152.586 Amount Heparin Sod,Pork in 0.45% 152.586 NaCl 25,000 unit In 0.45 % NaCl 1 500ml.bag @ 18 UNITS/KG/HR 21.85 mls/hr IV .[id number] [facility] Rx#: [id number] Other: Weight 60.7 kg 09/29/17 05:30 09/29/17 05:30 Assessment and Plan Assessment: ASSESSMENT 1. Palpitations 2. History of DVT and pulmonary embolism, CT angiogram negative for PE 3. Subtherapeutic INR 4. Dyslipidemia 5. Chronic tobacco use PLAN 2D echocardiogram and doppler study has been reviewed and is normal. Telemetry tracings have been unremarkable for PVCs or arrhythmia with normal thyroid function. Change anticoagulation to Eliquis 5 mg BID. No further cardiac evaluation at this time. Follow up with Dr. Richardson in 2-3 weeks for further evaluation in the outpatient setting. Thank you kindly for this consultation. The above impression and plan of care have been discussed and directed by the signing physician. Yue Muse, nurse practitioner, acting as scribe for signing physician.
--- NOTE | 2017-09-29 20:23 | DS ---
DISCHARGE SUMMARY FINAL DIAGNOSES: 1. Chest palpitations for evaluation. 2. History of asthma. 3. History of deep venous thrombosis. 4. Gastroesophageal reflux disease. 5. History of pulmonary embolism. 6. History of colon cancer and bowel resection. DISCHARGE DISPOSITION: The patient will be discharged in stable condition with guarded prognosis. HISTORY OF PRESENT ILLNESS: This 46-year-old gentleman was admitted with palpitations. The patient was monitored closely. Cardiology saw the patient, cleared the patient for discharge. The patient was evaluated for pulmonary embolism. CTA was negative for pulmonary embolism. A 2D echo with Doppler was also done. The INR was only 1.3. Anticoagulation was changed to Eliquis, per cardiology recommendations. On exam, vitals are stable. CARDIOVASCULAR SYSTEM: S1, S2 muffled. ABDOMEN: Soft. NERVOUS SYSTEM: No focal deficit. Two-D echo showed ejection fraction about 50% to 60%. DISCHARGE ADVICE AND MEDICATIONS: 1. Diet is cardiac. 2. Activity limited until followup. 3. Follow up with Dr. Hopkins in 2 to 3 days. 4. Follow up with Cardiology as advised. 5. Ventolin 1-2 puffs q.6 p.r.n. 6. Eliquis 5 mg p.o. b.i.d. 7. Aspirin 81 mg p.o. daily. 8. Tums 500 mg p.o. b.i.d. 9. Diclofenac 2 grams topically. 10.Flonase as before. 11.Neurontin 300 mg t.i.d. 12.Hydrocodone 1 tablet t.i.d. p.r.n. 13.Motrin 400 mg t.i.d. p.r.n. 14.Probiotic 1 p.o. daily. 15.Singulair 10 mg p.o. daily. 16.Morphine 15 mg p.o. daily. 17.Habitrol 1 daily. 18.Zantac 150 mg p.o. daily. Once again, the patient will be discharged in stable condition with guarded prognosis. MMODL / IJN: [id number] /
[2017-09-29] MEDS ORDERED: APIXABAN 5 MG TAB PO SCH (21:00)
[2017-09-30] MEDS ORDERED: WARFARIN 5 MG TAB PO SCH (18:00)
== END 2017-09-29 11:10 | disposition home or self-care (01) ==
LOC: EC 16:03 → 3OBS 18:58
PROVIDERS: ADMIT Hospitalist; ATTEND Hospitalist
DX: R00.2 Palpitations (principal); R07.9 Chest pain, unspecified; R53.83 Other fatigue; R79.1 Abnormal coagulation profile; R10.12 Left upper quadrant pain; M54.9 Dorsalgia, unspecified; G89.29 Other chronic pain; E78.5 Hyperlipidemia, unspecified; M19.90 Unspecified osteoarthritis, unspecified site; K21.9 Gastro-esophageal reflux disease without esophagitis; J45.909 Unspecified asthma, uncomplicated; Z95.5 Presence of coronary angioplasty implant and graft; Z95.828 Presence of other vascular implants and grafts; Z79.899 Other long term (current) drug therapy; Z79.51 Long term (current) use of inhaled steroids; Z79.891 Long term (current) use of opiate analgesic; Z79.82 Long term (current) use of aspirin; Z79.01 Long term (current) use of anticoagulants; Z86.718 Personal history of other venous thrombosis and embolism; Z86.711 Personal history of pulmonary embolism; F17.200 Nicotine dependence, unspecified, uncomplicated; Z85.038 Personal history of other malignant neoplasm of large intestine; Z80.9 Family history of malignant neoplasm, unspecified; Z90.49 Acquired absence of other specified parts of digestive tract
CPT/HCPCS: 99285; 96365; 96366; 96376; 36415; 93005; 93306; 84439; 84481; 80061; 80053; 80048; 82550 ×2; 82553 ×2; 83735; 84443; 84484 ×2; 85025 ×2; 85610; 85730 ×2; 71046; 71275; G0378 ×2; J1644 ×3; Q9967

== ENCOUNTER → 2018-05-22 | Outpatient (CLI) | payer MEDICARE ==
--- NOTE | 2018-05-22 14:00 | MR ---
EXAMINATION TYPE: MR shoulder LT wo con DATE OF EXAM: 05/22/2018 COMPARISON: NONE HISTORY: Left shoulder pain, rotator cuff tear per order. TECHNIQUE: Multiplanar, multisequence imaging of the left shoulder is performed without contrast. FINDINGS: Rotator Cuff: Distal supraspinatus tendon is intact . Tiny tear at articular surface noted parasagitt al image 7 measuring 3 mm AP diameter. There is 8mm focal tear bursal surface anterior fibers suprasp inatus tendon on same parasagittal image. No retracted full-thickness tear is seen. Rotator cuff muscle bulk is preserved. Subscapularis tendon is intact. Acromioclavicular Joint: Moderate narrowing with mild capsular hypertrophy is present. No significant . Minimal spurring is noted. Distal acromion morphology is unremarkable. Underlying fat plane is main tained. Glenohumeral Joint: Small glenohumeral joint effusion is seen. Mild to moderate narrowing is noted. N o significant spurring is appreciated. Labrum: The superior labrum shows increased signal and irregularity suspicious for degenerative tear paracoronal image 12. Biceps Tendon: The long head of biceps is in normal location within bicipital groove. Bone marrow signal: No focal abnormal marrow signal is appreciated. Other: No additional significant abnormality is appreciated. IMPRESSION: 1. Superior labral tear. 2. Partial tears distal supraspinatus and infraspinatus tendons, no full-thickness retracted tears. 3. Mild to moderate glenohumeral and acromioclavicular joint arthropathy.
== END | disposition home or self-care (01) ==
LOC: RADMRIMAIN 12:10
PROVIDERS: ATTEND Orthopaedic Surgery
DX: M75.112 Incomplete rotator cuff tear or rupture of left shoulder, not specified as traumatic (principal); S43.432A Superior glenoid labrum lesion of left shoulder, initial encounter; M12.812 Other specific arthropathies, not elsewhere classified, left shoulder

== ENCOUNTER 2020-02-28 13:05 | Emergency (ER) | payer MEDICARE ==
[2020-02-28 13:10] VITALS: BP 160/103; PULSE 103; RESP 16; TEMP 98.2
[2020-02-28] MEDS ORDERED: DIPH,PERTUS(ACELL)TETVAC-LF 0.5 ML VIAL IM ONE (13:26)
--- NOTE | 2020-02-28 13:31 | ED ---
Wound/Laceration HPI - General Chief Complaint: Wound/Laceration Stated Complaint: hand injury(home) Time Seen by Provider: 02/28/20 13:11 Source: patient Mode of arrival: ambulatory Limitations: no limitations - History of Present Illness Initial Comments: Patient is a 49-year-old male presenting to emergency Department with complaints of a puncture wound to his left hand that happened 2 days ago at home. Patient states he was trying to return a drill bit to its bajwa when he was pushing hard on it and it went through the webspace of his left thumb and first finger. Patient states he is taking a look with secondary to hx DVT, did stop taking it after the injury for fear of excessive bleeding. Patient does not remember his last tetanus vaccine. He denies any fever, chills. He states he came in today because he noticed a weird smell coming from the wound and was concerned for infection. Patient is able to move all his fingers and denies having any significant pain. He has no further complaints at this time. Upon arrival to the ER, his vital signs are stable. - Related Data Home Medications Medication Instructions Recorded Confirmed Montelukast [Singulair] 10 mg PO DAILY 10/23/14 09/28/17 Fluticasone Propionate [Flonase 1 spray EA NOSTRIL BID 10/30/14 09/28/17 Allergy Relief] Gabapentin [Neurontin] 300 mg PO TID 06/30/16 09/28/17 Hydrocodone/Acetaminophen [[place] 1 tab PO TID PRN 06/30/16 09/28/17 7.5-325] Morphine Sulfate [Morphine Sulfate 15 mg PO DAILY 06/30/16 09/28/17 ER] Albuterol Inhaler (Mhu) [Ventolin 1 - 2 puff INHALATION RT-Q6H PRN 05/16/17 09/28/17 Hfa Inhaler (Mhu)] Diclofenac Sodium Gel [Voltaren 2 gm TOPICAL QID PRN 05/16/17 09/28/17 Gel] Ranitidine HCl [Zantac] 150 mg PO DAILY 06/25/17 09/28/17 Aspirin [Adult Low Dose Aspirin EC] 81 mg PO DAILY 09/28/17 09/28/17 Calcium Carbonate [Tums] 500 mg PO BID 09/28/17 09/28/17 L.acidoph,Paracasei, B.lactis 1 cap PO DAILY 09/28/17 09/28/17 [Probiotic] Previous Rx's Medication Instructions Recorded Apixaban [Eliquis] 5 mg PO BID #60 tab 09/29/17 Ibuprofen [Motrin] 400 mg PO TID PRN #0 09/29/17 Nicotine 14Mg/24Hr Patch [Habitrol] 1 patch TRANSDERM DAILY #30 patch 09/29/17 Cephalexin [Keflex] 500 mg PO Q6HR 5 Days #20 cap 02/28/20 Allergies Allergy/AdvReac Type Severity Reaction Status Date / Time amoxicillin [From Augmentin] Allergy Diarrhea Verified 02/28/20 13:07 clavulanic acid Allergy Diarrhea Verified 02/28/20 13:07 [From Augmentin] Review of Systems ROS Statement: Those systems with pertinent positive or pertinent negative responses have been documented in the HPI. ROS Other: All systems not noted in ROS Statement are negative. Past Medical History Past Medical History: Asthma, Cancer, Deep Vein Thrombosis (DVT), GERD/Reflux, Musculoskeletal Disorder, Pulmonary Embolus (PE) Additional Past Medical History / Comment(s): CURRENT UPPER LEFT ABDOMINAL PAIN, heart murmur-no tx., hx colon cancer, hx. bowel obstruction, bulging discs, INCISIONAL HERNIA, CHRONIC BACK PAIN. STATES NO BLOOD DISORDER DIAGNOSED History of Any Multi-Drug Resistant Organisms: None Reported Past Surgical History: Bowel Resection, Hernia Repair, Orthopedic Surgery Additional Past Surgical History / Comment(s): rt inguinal hernia repair.bonifacio carpal tunnel, hx bowel resection d/t cancer then 2nd sx d/t obstruction/scar tissue. GREENFEILD FILTER PLACED. STATES NO LONGER IN USE. 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 pt stated has had multiple (non cardiac) st[facility], left shoulder sx 2019 Past Anesthesia/Blood Transfusion Reactions: No Reported Reaction Past Psychological History: No Psychological Hx Reported Smoking Status: Current every day smoker Past Alcohol Use History: None Reported Past Drug Use History: None Reported - Past Family History Mother Family Medical History: Cancer General Exam - General Exam Comments Initial Comments: GENERAL: Patient is well-developed and well-nourished. Patient is nontoxic and in no acute distress. HEAD: Atraumatic, normocephalic. EYES: Pupils equal round and reactive to light, extraocular movements intact, sclera anicteric, conjunctiva are normal. Eyelids were unremarkable. ENT: TMs normal, nares patent, oropharynx clear without exudates. Moist mucous membranes. NECK: Normal range of motion, supple without lymphadenopathy or JVD. LUNGS: Unlabored respirations. Breath sounds clear to auscultation bilaterally and equal. No wheezes rales or rhonchi. HEART: Regular rate and rhythm without murmurs, rubs or gallops. ABDOMEN: Soft, nontender, normoactive bowel sounds. No guarding, no rebound. No masses appreciated. : Deferred MUSCULOSKELETAL: Patient has full range of motion and 5 out of 5 strength of the left hand and fingers. Normal extremities with adequate strength and normal range of motion, no pitting or edema. No clubbing or cyanosis. NEUROLOGICAL: Patient is alert and oriented x 3. Motor and sensory are also intact. Cranial nerves II through XII grossly intact. Symmetrical smile. Normal speech, normal gait. PSYCH: Normal mood, normal affect. SKIN: Warm, Dry, normal turgor, no rashes. Patient has a small 0.5 cm puncture wound to the webspace of the left thumb and first finger. There is some very mild drainage from the area, no active bleeding, there is some mild swelling to the area. Limitations: no limitations Course Vital Signs 02/28/20 02/28/20 13:07 13:47 Temperature 98.2 F 98.2 F Pulse Rate 103 H 103 H Respiratory 16 16 Rate Blood Pressure 160/103 160/103 O2 Sat by Pulse 99 99 Oximetry Medical Decision Making - Medical Decision Making Patient is a 49-year-old male here for a puncture wound to his left hand 2 days ago. He did not remember his last tetanus vaccine so that was updated today. The wound is not actively bleeding, there is some mild redness to the area. I w ill start patient on Keflex for possible wound infection. He is stable for discharge. Recommend keeping the hand clean, covered while working. He needs to follow up with his PCP. He is in agreement with this plan of care and he is stable for discharge. Return parameters were discussed with the patient he verbalizes understanding. Disposition Clinical Impression: Puncture wound of left hand Disposition: HOME SELF-CARE Condition: Stable Instructions (If sedation given, give patient instructions): Cellulitis (ED) Additional Instructions: Please return to the Emergency Department if symptoms worsen or any other concerns. Take antibiotic as prescribed. May apply ice to area for mild swelling. Follow-up with PCP. Prescriptions: Cephalexin [Keflex] 500 mg PO Q6HR 5 Days #20 cap Is patient prescribed a controlled substance at d/c from ED?: No Referrals: Marika Hopkins MD [Primary Care Provider] - 1-2 days
== END 2020-02-28 13:48 | disposition home or self-care (01) ==
LOC: EC 13:05
DX: S61.432A Puncture wound without foreign body of left hand, initial encounter (principal); F17.200 Nicotine dependence, unspecified, uncomplicated; J45.909 Unspecified asthma, uncomplicated; K21.9 Gastro-esophageal reflux disease without esophagitis; Z79.01 Long term (current) use of anticoagulants; Z79.899 Other long term (current) drug therapy; Z85.038 Personal history of other malignant neoplasm of large intestine; Z86.718 Personal history of other venous thrombosis and embolism; Z86.711 Personal history of pulmonary embolism; W29.8XXA Contact with other powered hand tools and household machinery, initial encounter; Y93.89 Activity, other specified; Y92.009 Unspecified place in unspecified non-institutional (private) residence as the place of occurrence of the external cause; Z88.0 Allergy status to penicillin; Z88.1 Allergy status to other antibiotic agents; Z80.9 Family history of malignant neoplasm, unspecified; Z23 Encounter for immunization
CPT/HCPCS: 90471; 90715; 99283

== ENCOUNTER → 2020-12-01 | Outpatient (CLI) | payer MEDICARE | END | disposition home or self-care (01) | LOC: LABWHC1 10:41 | PROVIDERS: ATTEND Internal Medicine | DX: T14.8XXA Other injury of unspecified body region, initial encounter (principal); W57.XXXA Bitten or stung by nonvenomous insect and other nonvenomous arthropods, initial encounter | CPT/HCPCS: 36415; 86618 ==

== ENCOUNTER → 2023-06-15 | Outpatient (CLI) | payer MEDICARE ==
--- NOTE | 2023-06-16 08:20 | CT ---
EXAMINATION TYPE: CT abdomen pelvis wo con DATE OF EXAM: 06/15/2023 HISTORY: left side abdominal pain, hx of hernia repair x1 year ago. CT DLP: 255.70 mGycm. Automated Exposure Control for Dose Reduction was Utilized. TECHNIQUE: CT scan of the abdomen and pelvis is performed without oral or IV contrast. COMPARISON: Prior CT abdomen and pelvis November 04, 2014 FINDINGS: Within the limitations of a non-contrast study, the following observations are made. LUNG BASES: No significant abnormality is appreciated. LIVER/GB: Slightly larger 2.7 cm hypodense lesion in the right hepatic lobe axial image 25 favoring f lash filling hemangioma or benign etiology as was present in 2015. PANCREAS: No significant abnormality is seen. SPLEEN: No significant abnormality is seen. ADRENALS: No significant abnormality is seen. KIDNEYS: Nonobstructing 3 mm calculus lower pole left kidney axial image 40. No left-sided hydronephr osis. At least partially duplicated left-sided collecting system. Stable 10 mm calculus right kidney axial image 61. There is a 1.4 cm simple appearing thin-walled cyst right kidney axial image 57 incre ased in size from prior. No right-sided hydronephrosis. BOWEL: Surgical changes at level of the rectum. No abnormal small or large bowel dilatation. GENITAL ORGANS: No gross abnormality seen. LYMPH NODES: No greater than 1cm abdominal or pelvic lymph nodes are appreciated. OSSEOUS STRUCTURES: No significant abnormality is seen. OTHER: Persistent IVC filter at right L3 level. There are new bilateral stent grafts. IMPRESSION: Nonobstructing bilateral renal calculi. No acute findings on noncontrast CT to account fo r patient's symptoms of left-sided pain.
== END | disposition home or self-care (01) ==
LOC: RADCTMAIN 09:02
PROVIDERS: ATTEND Surgery
DX: N20.0 Calculus of kidney (principal)
CPT/HCPCS: 74176

== ENCOUNTER 2023-08-30 15:07 | Emergency (ER) | payer MEDICARE ==
[2023-08-30 15:42] LABS: Basophils # (A) 0.1 k/uL (0-0.2); Basophils % (A) 1 %; Eosinophils # (A) 0.2 k/uL (0-0.7); Eosinophils % (A) 2 %; HCT 43.9 % (39.0-53.0); HGB 14.4 gm/dL (13.0-17.5); Lymphocytes # (A) 2.4 k/uL (1.0-4.8); Lymphocytes % (A) 23 %; MCH 31.7 pg (25.0-35.0); MCHC 32.8 g/dL (31.0-37.0); MCV 96.6 fL (80.0-100.0); Mean Platelet Volume 7.5; Monocytes # (A) 0.8 k/uL (0-1.0); Monocytes % (A) 8 %; Neutrophils # (A) 7.2 k/uL (1.3-7.7); Neutrophils % (A) 67 %; Platelet Count 247 k/uL (150-450); RBC 4.54 m/uL (4.30-5.90); RDW 12.6 % (11.5-15.5); WBC 10.8 k/uL (3.8-10.6)
[2023-08-30 15:46] VITALS: RESP 18
[2023-08-30 15:58] LABS: ALT 26 U/L (4-49); African American GFR (CKD) >90 (>60 ml/min/1.73 sqM); Albumin 3.9 g/dL (3.5-5.0); Anion Gap 4 mmol/L; Blood Urea Nitrogen 20 mg/dL (9-20); Calcium 8.9 mg/dL (8.4-10.2); Carbon Dioxide 28 mmol/L (22-30); Chloride 106 mmol/L (98-107); Glucose 104 mg/dL (74-99); Lipase 68 U/L (23-300); Non-African American GFR(CKD) >90 (>60 ml/min/1.73 sqM); Sodium 138 mmol/L (137-145); Total Bilirubin 0.7 mg/dL (0.2-1.3)
[2023-08-30 15:59] LABS: AST 35 U/L (17-59); Alkaline Phosphatase 57 U/L (38-126); Potassium 4.8 mmol/L (3.5-5.1); Total Protein 6.7 g/dL (6.3-8.2)
[2023-08-30] MEDS: SODIUM CHLORIDE 0.9% 500 ML 500 ML IV STA (16:00)
[2023-08-30] MEDS: SODIUM CHLORIDE 0.9% 1,000 ML IV STA (16:00)
[2023-08-30] MEDS: MORPHINE SULFATE 4 MG/ML SYRINGE IV STA (16:00)
--- NOTE | 2023-08-30 16:46 | CT ---
EXAMINATION TYPE: CT abdomen pelvis wo con CT DLP: 325.3 mGycm, Automated exposure control for dose reduction was used. DATE OF EXAM: 08/30/2023 4:27 PM COMPARISON: CT abdomen pelvis most recent from on 06/15/2023 CLINICAL INDICATION:Male, 52 years old with history of flank pain, kidney stone suspected; Flank pain , r/o renal stones. TECHNIQUE: Axial CT abdomen pelvis wo con;Sagittal and coronal reformats were created on a separate workstation. Contrast used: mL of , (none if empty) Oral contrast used: without Oral Contrast (none if empty) FINDINGS: LOWER CHEST: Unremarkable ABDOMEN LIVER: Unremarkable GALLBLADDER AND BILE DUCTS: Unremarkable. PANCREAS: Unremarkable. SPLEEN: Unremarkable. ADRENAL GLANDS: Unremarkable. KIDNEYS AND URETERS: Right obstructing calculus measuring 9 mm. Mild left hydronephrosis secondary ob structing 3 mm calculus at the ureterovesicular junction. Probable right renal cyst. PELVIS BLADDER: Unremarkable REPRODUCTIVE: Unremarkable. ABDOMEN & PELVIS STOMACH AND BOWEL: No evidence of bowel obstruction. Postsurgical changes to the rectum. PERITONEUM/RETROPERITONEUM: No evidence of pneumoperitoneum or free fluid. VASCULATURE: No evidence of aortic aneurysm. Aortobiiliac stent graft present which extend along the common iliac and external iliac veins. MUSCULOSKELETAL: No acute osseous abnormalities LYMPH NODES: No gross evidence for lymphadenopathy. SOFT TISSUE/ABDOMINAL WALL: Unremarkable IMPRESSION: 1. Mild left hydronephrosis secondary obstructing 3 mm calculus at the ureterovesicular junction. Ri ght renal calculus. 2. Post surgical changes the rectum without evidence for wall thickening or lymphadenopathy.
[2023-08-30] MEDS: SODIUM CHLORIDE 0.9% 500 ML IV STA (17:10)
[2023-08-30 17:25] LABS: Appearance,Urine Cloudy (Clear); Bilirubin,Urine Negative (Negative); Blood,Urine Moderate (Negative); Color,Urine Yellow; Glucose,Urine (UA) Negative (Negative); Ketones,Urine Negative (Negative); Leukocyte Esterase,Urine Negative (Negative); Mucus,Urine Few /hpf; Nitrite,Urine Negative (Negative); PH, Urine 5.5 (5.0-8.0); Protein,Urine Trace (Negative); RBC,Urine >182 /hpf (0-5); Specific Gravity,Urine 1.017 (1.001-1.035); Urobilinogen,Urine <2.0 mg/dL (<2.0); WBC,Urine 1 /hpf (0-5)
--- NOTE | 2023-08-30 17:27 | ED ---
Abdominal Pain HPI - General Chief Complaint: Abdominal Pain Stated Complaint: ABD pain, back pain Time Seen by Provider: 08/30/23 15:24 Source: patient, EMS Mode of arrival: EMS - History of Present Illness Initial Comments: This 52-year-old male presents with complaint of abdominal pain and left flank pain. He states that this just started earlier today. It was fairly sudden in onset. He states that the abdominal pain is primarily over his bladder region. He denies any nausea, vomiting, fevers, chills, diarrhea, constipation, or urinary symptoms. He denies any hematuria. He states that he did have some x- rays years ago which did show a kidney stone but he is never passed a kidney stone. He states that the pain was fairly severe. He presents via EMS. He received Toradol via EMS with some moderate relief. He denies any other complaints or modifying factors. - Related Data Home Medications Medication Instructions Recorded Confirmed Montelukast [Singulair] 10 mg PO DAILY 10/23/14 09/28/17 Fluticasone Propionate [Flonase 1 spray EA NOSTRIL BID 10/30/14 09/28/17 Allergy Relief] Gabapentin [Neurontin] 300 mg PO TID 06/30/16 09/28/17 Hydrocodone/Acetaminophen [[place] 1 tab PO TID PRN 06/30/16 09/28/17 7.5-325] Morphine Sulfate [Morphine Sulfate 15 mg PO DAILY 06/30/16 09/28/17 ER] Albuterol Inhaler [Ventolin Hfa 1 - 2 puff INHALATION RT-Q6H PRN 05/16/17 09/28/17 Inhaler] Diclofenac Sodium Gel [Voltaren 1% 2 gm TOPICAL QID PRN 05/16/17 09/28/17 Gel] Ranitidine HCl [Zantac] 150 mg PO DAILY 06/25/17 09/28/17 Aspirin [Adult Low Dose Aspirin EC] 81 mg PO DAILY 09/28/17 09/28/17 Calcium Carbonate [Tums] 500 mg PO BID 09/28/17 09/28/17 L.acidoph,Paracasei, B.lactis 1 cap PO DAILY 09/28/17 09/28/17 [Probiotic] Previous Rx's Medication Instructions Recorded Apixaban [Eliquis] 5 mg PO BID #60 tab 09/29/17 Ibuprofen [Motrin] 400 mg PO TID PRN #0 09/29/17 Nicotine 14Mg/24Hr Patch [Habitrol] 1 patch TRANSDERM DAILY #30 patch 09/29/17 Cephalexin [Keflex] 500 mg PO Q6HR 5 Days #20 cap 02/28/20 Tamsulosin [Flomax] 0.4 mg PO DAILY #15 cap 08/30/23 Allergies Allergy/AdvReac Type Severity Reaction Status Date / Time amoxicillin [From Augmentin] AdvReac Diarrhea Verified 08/30/23 17:36 clavulanic acid AdvReac Diarrhea Verified 08/30/23 17:36 [From Augmentin] Review of Systems ROS Statement: Those systems with pertinent positive or pertinent negative responses have been documented in the HPI. ROS Other: All systems not noted in ROS Statement are negative. Past Medical History Past Medical History: Asthma, Cancer, Deep Vein Thrombosis (DVT), GERD/Reflux, Musculoskeletal Disorder, Pulmonary Embolus (PE) Additional Past Medical History / Comment(s): CURRENT UPPER LEFT ABDOMINAL PAIN, heart murmur-no tx., hx colon cancer, hx. bowel obstruction, bulging discs, INCISIONAL HERNIA, CHRONIC BACK PAIN. STATES NO BLOOD DISORDER DIAGNOSED History of Any Multi-Drug Resistant Organisms: None Reported Past Surgical History: Bowel Resection, Hernia Repair, Orthopedic Surgery Additional Past Surgical History / Comment(s): rt inguinal hernia repair.[place]acio carpal tunnel, hx bowel resection d/t cancer then 2nd sx d/t obstruction/scar tissue. GREENFEILD FILTER PLACED. STATES NO LONGER IN USE. 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 pt stated has had multiple (non cardiac) stents placed at [facility], left shoulder sx 2019 Past Anesthesia/Blood Transfusion Reactions: No Reported Reaction Past Psychological History: No Psychological Hx Reported Smoking Status: Former smoker Past Alcohol Use History: None Reported Past Drug Use History: None Reported - Past Family History Mother Family Medical History: Cancer General Exam - General Exam Comments Initial Comments: GENERAL: The patient is well nourished and well hydrated. VITAL SIGNS: Heart rate, blood pressure, respiratory rate reviewed as recorded in nurse's notes. EYES: Pupils are round and reactive. Extraocular movements are intact. No conjunctival / lid redness or swelling. ENT: No external evidence of injury, swelling, or ecchymosis. Airway is patent. Throat is clear. NECK: Nontender. No swelling or evidence of injury. No subcutaneous emphysema. Trachea is midline. No thyroid mass. HEART: Regular rate and rhythm. Good peripheral pulses. LUNGS/CHEST: Breath sounds clear and equal bilaterally. No rales, rhonchi, or wheezes. No ecchymosis, subcutaneous emphysema, or tenderness. ABDOMEN: Mild tenderness to left flank. Minimal tenderness in the suprapubic region. No palpable masses or organomegaly. No peritoneal signs. No abdominal wall swelling or ecchymosis. EXTREMITIES: No extremity tenderness. Normal muscle tone and function. No thoracolumbar tenderness. NEUROLOGIC: Sensation is grossly intact. Cranial nerve exam reveals face is symmetrical, tongue is midline, speech is clear. SKIN: No abrasions or ecchymosis is noted. No induration or masses noted. PSYCHIATRIC: Alert and oriented. Appropriate behavior and judgment. Course Vital Signs 08/30/23 08/30/23 15:14 15:45 Temperature 98.3 F Pulse Rate 84 Respiratory 18 Rate Blood Pressure 163/108 146/95 O2 Sat by Pulse 98 Oximetry Medical Decision Making - Medical Decision Making The patient was seen and examined. All diagnostics are reviewed. IV is established and patient receives morphine intravenously with some moderate relief. Patient relates that pain later comes back in receives additional morphine. Patient is hydrated. Laboratory does not show any acute abnormalities. CT scan of the abdomen and pelvis was completed and does show a 3 mm ureterovesicular junction stone on the left side per my interpretation and radiologist interpretation. The urinalysis comes back showing evidence of hematuria but no infection. It is felt as though his symptomatology likely is related to this ureteral stone. He is feeling much improved on recheck. It is also felt as though he is stable for discharge home. Return parameters are discussed. Close follow-up recommended. Urology referral also will be given. The patient does have a history of previous back problems and colon cancer. He has home pain medications of morphine, [place], and Motrin. He is instructed to take his home pain medications and Motrin. He also has Zofran if needed for nausea. Flomax will be prescribed. Was pt. sent in by a medical professional or institution (, PA, B[employer] TENDER, urgent care, hospital, or care home...) When possible be specific @ -No Did you speak to anyone other than the patient for history (EMS, parent, family, police, friend...)? What history was obtained from this source @ -Patient's is present and additional history is obtained per . Did you review nursing and triage notes (agree or disagree)? Why? @ -I reviewed and agree with nursing and triage notes Were old charts reviewed (outside hosp., previous admission, EMS record, old EKG, old radiological studies, urgent care reports/EKG's, care home records)? Report findings @ -No old charts were reviewed Differential Diagnosis (chest pain, altered mental status, abdominal pain women, abdominal pain men, vaginal bleeding, weakness, fever, dyspnea, syncope, headache, dizziness, GI bleed, back pain, seizure, CVA, palpatations, mental health, musculoskeletal)? @ -Nephrolithiasis, ureterolithiasis, abdominal pain, diverticulitis. EKG interpreted by me (3pts min.). @ -Not done X-rays interpreted by me (1pt min.). @ -None done CT interpreted by me (1pt min.). @ -As above U/S interpreted by me (1pt. min.). @ -None done What testing was considered but not performed or refused? (CT, X-rays, U/S, labs)? Why? @ -None What meds were considered but not given or refused? Why? @ -None Did you discuss the management of the patient with other professionals (professionals i.e. , PA, [employer] TENDER, lab, RT, psych nurse, social services counselor, motion pictures cartoonist, teacher, intelligence support officer, shoe parts caser)? Give summary @ -No Was smoking cessation discussed for >3mins.? @ -No Was critical care preformed (if so, how long)? @ -No Were there social determinants of health that impacted care today? How? (Homele ssness, low income, unemployed, alcoholism, drug addiction, transportation, low edu. Level, literacy, decrease access to med. care, prison, rehab)? @ -No Was there de-escalation of care discussed even if they declined (Discuss DNR or withdrawal of care, Hospice)? DNR status @ -No What co-morbidities impacted this encounter? (DM, HTN, Smoking, COPD, CAD, Cancer, CVA, ARF, Chemo, Hep., AIDS, mental health diagnosis, sleep apnea, morbid obesity)? @ -Chronic back pain, colon cancer. Was patient admitted / discharged? Hospital course, mention meds given and route, prescriptions, significant lab abnormalities, going to OR and other pertinent info. @ -Patient was discharged home, please see above. Undiagnosed new problem with uncertain prognosis? @ -No Drug Therapy requiring intensive monitoring for toxicity (Heparin, Nitro, Insulin, Cardizem)? @ -No Were any procedures done? @ -No Diagnosis/symptom? @ -Left ureterolithiasis, abdominal pain, flank pain, hematuria. Acute, or Chronic, or Acute on Chronic? @ -Acute Uncomplicated (without systemic symptoms) or Complicated (systemic symptoms)? @ -Uncomplicated Side effects of treatment? @ -No Exacerbation, Progression, or Severe Exacerbation? @ -No Poses a threat to life or bodily function? How? (Chest pain, [place], [place], pneumonia, PE, COPD, DKA, ARF, appy, cholecystitis, CVA, Diverticulitis, Homicidal, Suicidal, threat to staff... and all critical care pts) @ -No - Lab Data Result diagrams: 08/30/23 15:23 08/30/23 15:23 Lab Results 08/30/23 08/30/23 08/30/23 Range/Units 15:23 15:23 16:08 WBC 10.8 H (3.8-10.6) k/uL RBC 4.54 (4.30-5.90) m/uL Hgb 14.4 (13.0-17.5) gm/dL Hct 43.9 (39.0-53.0) % MCV 96.6 (80.0-100.0) fL MCH 31.7 (25.0-35.0) pg MCHC 32.8 (31.0-37.0) g/dL RDW 12.6 (11.5-15.5) % Plt Count 247 (150-450) k/uL MPV 7.5 Neutrophils % 67 % Lymphocytes % 23 % Monocytes % 8 % Eosinophils % 2 % Basophils % 1 % Neutrophils # 7.2 (1.3-7.7) k/uL Lymphocytes # 2.4 (1.0-4.8) k/uL Monocytes # 0.8 (0-1.0) k/uL Eosinophils # 0.2 (0-0.7) k/uL Basophils # 0.1 (0-0.2) k/uL Sodium 138 (137-145) mmol/L Potassium 4.8 (3.5-5.1) mmol/L Chloride 106 (98-107) mmol/L Carbon Dioxide 28 (22-30) mmol/L Anion Gap 4 mmol/L BUN 20 (9-20) mg/dL Creatinine 0.68 (0.66-1.25) mg/dL Est GFR (CKD-EPI)AfAm >90 (>60 ml/min/1.73 sqM) Est GFR (CKD-EPI)NonAf >90 (>60 ml/min/1.73 sqM) Glucose 104 H (74-99) mg/dL Calcium 8.9 (8.4-10.2) mg/dL Total Bilirubin 0.7 (0.2-1.3) mg/dL AST 35 (17-59) U/L ALT 26 (4-49) U/L Alkaline Phosphatase 57 (38-126) U/L Total Protein 6.7 (6.3-8.2) g/dL Albumin 3.9 (3.5-5.0) g/dL Lipase 68 (23-300) U/L Urine Color Yellow Urine Appearance Cloudy (Clear) Urine pH 5.5 (5.0-8.0) Ur Specific [place] 1.017 (1.001-1.035) Urine Protein Trace H (Negative) Urine Glucose (UA) Negative (Negative) Urine Ketones Negative (Negative) Urine Blood Moderate H (Negative) Urine Nitrite Negative (Negative) Urine Bilirubin Negative (Negative) Urine Urobilinogen <2.0 (<2.0) mg/dL Ur Leukocyte Esterase Negative (Negative) Urine RBC >182 H (0-5) /hpf Urine WBC 1 (0-5) /hpf Urine Mucus Few H (None) /hpf Disposition Clinical Impression: Ureterolithiasis, Abdominal pain, Flank pain, Hematuria Disposition: HOME SELF-CARE Condition: Good Prescriptions: Tamsulosin [Flomax] 0.4 mg PO DAILY #15 cap Is patient prescribed a controlled substance at d/c from ED?: No Referrals: Marika Hopkins MD [Primary Care Provider] - 1-2 days Time of Disposition: 17:41
[2023-08-30] MEDS: MORPHINE SULFATE 4 MG/ML SYRINGE IVP STA (17:29)
[2023-08-30 17:59] VITALS: BP 145/99; PULSE 89; TEMP 98.7
== END 2023-08-30 18:10 | disposition home or self-care (01) ==
LOC: EC 15:07
DX: N13.2 Hydronephrosis with renal and ureteral calculous obstruction (principal); G89.29 Other chronic pain; Z88.0 Allergy status to penicillin; Z88.1 Allergy status to other antibiotic agents; Z85.038 Personal history of other malignant neoplasm of large intestine; Z87.891 Personal history of nicotine dependence
CPT/HCPCS: 36415; 80053; 83690; 85025; 81001; 74176; 99285; 96374; 96376; 96361 ×2; J2270

== ENCOUNTER 2024-12-23 17:50 | Emergency (ER) | payer MEDICARE ==
--- NOTE | 2024-12-23 19:51 | ED ---
General Adult HPI - General Source: patient, RN notes reviewed Mode of arrival: EMS Limitations: no limitations <SamiaDwain - Last Filed: 12/23/24 19:50> - General Source: patient, RN notes reviewed, old records reviewed Mode of arrival: EMS Limitations: no limitations - History of Present Illness -: hour(s) Location: head, chest Severity scale (1-10): 7 Consistency: intermittent Improves with: none Worsens with: none Associated Symptoms: chest pain, other (Palpitation) Treatments Prior to Arrival: none <Malcolm Moreno - Last Filed: 12/24/24 00:55> - General Chief complaint: Arrhythmia/Palpitations Stated complaint: Fast Heart Rate Time Seen by Provider: 12/23/24 18:07 - History of Present Illness Initial comments: Quick note: This is a 54-year-old male with history including: CVA, DVT and PE presenting via EMS for elevated heart rate and blood pressure starting at 1400 today. Patient endorses undergoing right hand surgery earlier today at [facility] with symptoms starting several hours afterwards. Patient states surgery went well, receiving fentanyl and [place] and taking his at home morphine earlier today. Endorses having a sandwich with possible caffeinated soda prior to start of symptoms as well. Denies fever, chills, chest pain, dyspnea, dizziness, diaphoresis. (Dwain Gracia) This is a 54-year-old male to the ER for evaluation. Patient has elevated heart rate and blood pressure today. This was after surgery, heart rate was in the 140s maybe 180s. His folic he was racing in his chest. No other complaints aside from pain in his right hand (Malcolm Moreno) - Related Data Home Medications Medication Instructions Recorded Confirmed Montelukast [Singulair] 10 mg PO DAILY 10/23/14 08/30/23 Fluticasone Propionate [Flonase 2 spr EA NOSTRIL BID 10/30/14 08/30/23 Allergy Relief] Hydrocodone/Acetaminophen [[place] 1 tab PO TID 06/30/16 08/30/23 7.5-325] Morphine Sulfate [Morphine Sulfate 15 mg PO BID 06/30/16 08/30/23 ER] Albuterol Inhaler [Ventolin Hfa 2 puff INHALATION RT-TID PRN 05/16/17 08/30/23 Inhaler] Diclofenac Sodium Gel [Voltaren 1% 2 gm TOPICAL TID PRN 05/16/17 08/30/23 Gel] ALPRAZolam [Xanax] 0.25 mg PO DAILY PRN 08/30/23 08/30/23 Cetirizine HCl [Zyrtec] 10 mg PO HS 08/30/23 08/30/23 Cholecalciferol [Vitamin D3 (25 25 mcg PO DAILY 08/30/23 08/30/23 Mcg = 1000 Iu)] Flunisolide Nasal [place] [Nasalide] 2 spr EA NOSTRIL BID PRN 08/30/23 08/30/23 Multivitamins, Thera [Multivitamin 1 tab PO WEEKLY 08/30/23 08/30/23 (formulary)] Pantoprazole [Protonix] 40 mg PO DAILY 08/30/23 08/30/23 Rosuvastatin Calcium 5 mg PO DAILY 08/30/23 08/30/23 Zinc Gluconate [Zinc] 50 mg PO WEEKLY 08/30/23 08/30/23 Previous Rx's Medication Instructions Recorded Apixaban [Eliquis] 5 mg PO BID #60 tab 09/29/17 Tamsulosin [Flomax] 0.4 mg PO DAILY #15 cap 08/30/23 Allergies Allergy/AdvReac Type Severity Reaction Status Date / Time amoxicillin [From Augmentin] AdvReac Diarrhea Verified 08/30/23 17:36 clavulanic acid AdvReac Diarrhea Verified 08/30/23 17:36 [From Augmentin] Review of Systems ROS Other: All systems not noted in ROS Statement are negative. <Dwain Gracia - Last Filed: 12/23/24 19:50> ROS Other: All systems not noted in ROS Statement are negative. <Malcolm Moreno - Last Filed: 12/24/24 00:55> ROS Statement: Those systems with pertinent positive or pertinent negative responses have been documented in the HPI. Past Medical History Past Medical History: Asthma, Cancer, Deep Vein Thrombosis (DVT), GERD/Reflux, Musculoskeletal Disorder, Pulmonary Embolus (PE) Additional Past Medical History / Comment(s): CURRENT UPPER LEFT ABDOMINAL PAIN, heart murmur-no tx., hx colon cancer, hx. bowel obstruction, bulging discs, INCISIONAL HERNIA, CHRONIC BACK PAIN. STATES NO BLOOD DISORDER DIAGNOSED History of Any Multi-Drug Resistant Organisms: None Reported Past Surgical History: Bowel Resection, Hernia Repair, Orthopedic Surgery Additional Past Surgical History / Comment(s): rt inguinal hernia repair.[place] carpal tunnel, hx bowel resection d/t cancer then 2nd sx d/t obstruction/scar tissue. GREENFEILD FILTER PLACED. STATES NO LONGER IN USE. 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 pt stated has had multiple (non c ardiac) stents placed at [facility], left shoulder sx 2019 Past Anesthesia/Blood Transfusion Reactions: No Reported Reaction Past Psychological History: No Psychological Hx Reported Smoking Status: Former smoker Past Alcohol Use History: None Reported Past Drug Use History: None Reported - Past Family History Mother Family Medical History: Cancer <Dwain Gracia - Last Filed: 12/23/24 19:50> General Exam Limitations: no limitations <Dwain Gracia - Last Filed: 12/23/24 19:50> General appearance: alert, in no apparent distress Head exam: Present: atraumatic, normocephalic, normal inspection Eye exam: Present: normal appearance, PERRL, EOMI. Absent: scleral icterus, conjunctival injection, periorbital swelling ENT exam: Present: normal exam, mucous membranes moist Neck exam: Present: normal inspection. Absent: tenderness, meningismus, lymphadenopathy Respiratory exam: Present: normal lung sounds bilaterally. Absent: respiratory distress, wheezes, rales, rhonchi, stridor Cardiovascular Exam: Present: regular rate, normal rhythm, normal heart sounds. Absent: systolic murmur, diastolic murmur, rubs, gallop, clicks GI/Abdominal exam: Present: soft, normal bowel sounds. Absent: distended, tenderness, guarding, rebound, rigid Extremities exam: Present: normal inspection, full ROM, normal capillary refill. Absent: tenderness, pedal edema, joint swelling, calf tenderness Back exam: Present: normal inspection Neurological exam: Present: alert, oriented X3, CN II-XII intact Psychiatric exam: Present: normal affect, normal mood Skin exam: Present: warm, dry, intact, normal color. Absent: rash <Malclom Moreno - Last Filed: 12/24/24 00:55> - General Exam Comments Initial Comments: Visual Physical Exam Vital signs reviewed General: Well-appearing, nontoxic, no acute distress. Head: Normocephalic, atraumatic Eyes: PERRLA, EOMI ENT: Airway patent Chest: Nonlabored breathing Skin: No visual rash, normal skin tone Neuro: Alert and oriented 3 Musculoskeletal: No gross abnormalities. Right hand wrapped in Jeremi wrap. (Dwain Gracia) Course <Malcolm Moreno - Last Filed: 12/24/24 00:55> Vital Signs 12/23/24 12/23/24 12/23/24 18:05 22:51 23:29 Temperature 98.0 F 98.1 F Pulse Rate 96 90 91 Respiratory 16 18 16 Rate Blood Pressure 126/81 144/91 132/68 O2 Sat by Pulse 98 99 99 Oximetry - Reevaluation(s) Reevaluation #1: 12/24/24 00:55 Medical records reviewed (Malcolm Moreno) Reevaluation #2: 12/24/24 00:55 Patient asymptomatic throughout ER stay states his heart rate feels normal (Malcolm Moreno) Reevaluation #3: 12/24/24 00:55 Patient informed of results questions answered (Malcolm Moreno) Reevaluation #4: Was pt. sent in by a medical professional or institution (, PA, PIPE SMOKING MACHINE OFFBEARER, urgent care, hospital, or jail...) When possible be specific @ -no Did you speak to anyone other than the patient for history (EMS, parent, family, police, friend...)? What history was obtained from this source @ -no Did you review nursing and triage notes (agree or disagree)? Why? @ -agree Are old charts reviewed (outside hosp., previous admission, EMS record, old EKG, old radiological studies, urgent care reports/EKG's, jail records)? Report findings @ -yes Differential Diagnosis (chest pain, altered mental status, abdominal pain women, abdominal pain men, vaginal bleeding, weakness, fever, dyspnea, syncope, headache, dizziness, GI bleed, back pain, seizure, CVA, palpatations, mental health, musculoskeletal)? @ -prior EKG interpreted by me (3pts min.). @ -yes X-rays interpreted by me (1pt min.). @ -yes negative for acute disease CT interpreted by me (1pt min.). @ -no U/S interpreted by me (1pt. min.). @ -no What testing was considered but not performed or refused? (CT, X-rays, U/S, labs)? Why? @ -none What meds were considered but not given or refused? Why? @ -none Did you discuss the management of the patient with other professionals (professionals i.e. , PA, PIPE SMOKING MACHINE OFFBEARER, lab, RT, psych nurse, neonatal social worker, ui software engineer, teacher, credit control officer, pillowcase folder)? Give summary @ -no Was smoking cessation discussed for >3mins.? @ -no Was critical care preformed (if so, how long)? @ -no Were there social determinants of health that impacted care today? How? (Homelessness, low income, unemployed, alcoholism, drug addiction, transportation, low edu. Level, literacy, decrease access to med. care, halfway, rehab)? @ -none Was there de-escalation of care discussed even if they declined (Discuss DNR or withdrawal of care, Hospice)? DNR status @ -no What co-morbidities impacted this encounter? (DM, HTN, Smoking, COPD, CAD, Cancer, CVA, ARF, Chemo, Hep., AIDS, mental health diagnosis, sleep apnea, morbid obesity)? @ -none Was patient admitted / discharged? Hospital course, mention meds given and route, prescriptions, significant lab abnormalities, going to OR and other pertinent info. @ - Undiagnosed new problem with uncertain prognosis? @ -no Drug Therapy requiring intensive monitoring for toxicity (Heparin, Nitro, Insulin, Cardizem)? @ -no Were any procedures done? @ -no Diagnosis/symptom? @ - Acute, or Chronic, or Acute on Chronic? @ -Acute Uncomplicated (without systemic symptoms) or Complicated (systemic symptoms)? @ -Complicated Side effects of treatment? @ -no Exacerbation, Progression, or Severe Exacerbation? @ -exacerbation Poses a threat to life or bodily function? How? (Chest pain, [place], PA, pneumonia, PE, COPD, DKA, ARF, appy, cholecystitis, CVA, Diverticulitis, Homicidal, Suicidal, threat to staff... and all critical care pts) @ -yes (Malcolm Moreno) Reevaluation #5: Differential Palpitations Ventricular arrhythmias, atrial arrhythmias, myocardial infarction, anemia, thyrotoxicosis, electrolyte imbalance, hypokalemia, pulmonary embolism, pulmonary disease, drugs, alcohol, anxiety, stress.... This is not meant to be an all-inclusive list. (Malcolm Moreno) EKG Findings - EKG Comments: EKG Findings:: EKG is sinus 80 DC 133 QRS 88 QTc 395 - EKG Results: EKG: interpreted by ERMD <Malcolm Moreno - Last Filed: 12/24/24 00:55> Medical Decision Making <Dwain Gracia - Last Filed: 12/23/24 19:50> - Lab Data Result diagrams: 12/23/24 20:10 12/23/24 20:10 - Radiology Data Radiology results: report reviewed (Chest x-ray CTA chest negative for acute disease), image reviewed <Malcolm Moreno - Last Filed: 12/24/24 00:55> - Medical Decision Making I completed the quick note portion of this chart signed CHIQUITA Magaña (Dwain Gracia) 54 male here for evaluation of palpitations tachycardia symptoms resolved on arrival, negative CT scanning here in the ER patient feels well and can be discharged home (Malcolm Moreno) - Lab Data Lab Results 12/23/24 12/23/24 12/23/24 Range/Units 20:10 20:10 20:10 WBC 6.05 (4.50-10.00) 10*3/uL RBC 4.45 (4.40-5.60) 10*6/uL Hgb 14.7 (13.0-17.0) g/dL Hct 43.0 (39.6-50.0) % MCV 96.6 (80.0-97.0) fL MCH 33.0 H (27.0-32.0) pg MCHC 34.2 (32.0-37.0) g/dL Plt Count 302 (140-440) 10*3/uL MPV 8.8 L (9.5-12.2) fL Immature Gran % (Auto) 0.3 % Neutrophils % 84.6 % Lymphocytes % 12.9 % Monocytes % 2.0 % Eosinophils % 0.0 % Basophils % 0.2 % Immature Gran # 0.02 (0.00-0.04) 10*3/uL Neutrophils # 5.12 (1.80-7.70) 10*3/uL Lymphocytes # 0.78 L (0.90-5.00) 10*3/uL Monocytes # 0.12 L (0.20-1.00) 10*3/uL Eosinophils # 0.00 L (0.04-0.35) 10*3/uL Basophils # 0.01 (0.00-0.10) 10*3/uL PT 10.3 (10.0-12.5) sec INR 0.9 (<1.2) APTT 21.5 L (22.0-30.0) sec D-Dimer 1.82 H (<0.60) mg/L FEU Sodium 141 (137-145) mmol/L Potassium 4.0 (3.5-5.1) mmol/L Chloride 105 (98-107) mmol/L Carbon Dioxide 25 (22-30) mmol/L Anion Gap 11 mmol/L BUN 15 (9-20) mg/dL Creatinine 0.50 L (0.66-1.25) mg/dL Est GFR (CKD-EPI)AfAm >90 (>60 ml/min/1.73 sqM) Est GFR (CKD-EPI)NonAf >90 (>60 ml/min/1.73 sqM) Glucose 149 H (74-99) mg/dL Plasma Lactic Acid [place] (0.7-2.0) mmol/L Calcium 9.1 (8.4-10.2) mg/dL Total Bilirubin 0.5 (0.2-1.3) mg/dL AST 25 (17-59) U/L ALT 22 (4-49) U/L Alkaline Phosphatase 63 (38-126) U/L Troponin I (0.000-0.034) ng/mL Total Protein 6.7 (6.3-8.2) g/dL Albumin 4.3 (3.5-5.0) g/dL 12/23/24 12/23/24 Range/Units 20:10 20:24 WBC (4.50-10.00) 10*3/uL RBC (4.40-5.60) 10*6/uL Hgb (13.0-17.0) g/dL Hct (39.6-50.0) % MCV (80.0-97.0) fL MCH (27.0-32.0) pg MCHC (32.0-37.0) g/dL Plt Count (140-440) 10*3/uL MPV (9.5-12.2) fL Immature Gran % (Auto) % Neutrophils % % Lymphocytes % % Monocytes % % Eosinophils % % Basophils % % Immature Gran # (0.00-0.04) 10*3/uL Neutrophils # (1.80-7.70) 10*3/uL Lymphocytes # (0.90-5.00) 10*3/uL Monocytes # (0.20-1.00) 10*3/uL Eosinophils # (0.04-0.35) 10*3/uL Basophils # (0.00-0.10) 10*3/uL PT (10.0-12.5) sec INR (<1.2) APTT (22.0-30.0) sec D-Dimer (<0.60) mg/L FEU Sodium (137-145) mmol/L Potassium (3.5-5.1) mmol/L Chloride (98-107) mmol/L Carbon Dioxide (22-30) mmol/L Anion Gap mmol/L BUN (9-20) mg/dL Creatinine (0.66-1.25) mg/dL Est GFR (CKD-EPI)AfAm (>60 ml/min/1.73 sqM) Est GFR (CKD-EPI)NonAf (>60 ml/min/1.73 sqM) Glucose (74-99) mg/dL Plasma Lactic Acid [place] 1.5 (0.7-2.0) mmol/L Calcium (8.4-10.2) mg/dL Total Bilirubin (0.2-1.3) mg/dL AST (17-59) U/L ALT (4-49) U/L Alkaline Phosphatase (38-126) U/L Troponin I <0.012 (0.000-0.034) ng/mL Total Protein (6.3-8.2) g/dL Albumin (3.5-5.0) g/dL Disposition <Dwain Gracia - Last Filed: 12/23/24 19:50> Is patient prescribed a controlled substance at d/c from ED?: No Time of Disposition: 23:05 <Malcolm Moreno - Last Filed: 12/24/24 00:55> Clinical Impression: Tachycardia, Palpitations Disposition: HOME SELF-CARE Condition: Good Instructions (If sedation given, give patient instructions): Heart Palpitations (ED) Referrals: Marika Hopkins MD [Primary Care Provider] - 1-2 days
[2024-12-23 20:28] LABS: Basophils # (A) 0.01 10*3/uL (0.00-0.10); Basophils % (A) 0.2 %; Eosinophils # (A) 0.00 10*3/uL (0.04-0.35); Eosinophils % (A) 0.0 %; HCT 43.0 % (39.6-50.0); HGB 14.7 g/dL (13.0-17.0); Lymphocytes # (A) 0.78 10*3/uL (0.90-5.00); Lymphocytes % (A) 12.9 %; MCH 33.0 pg (27.0-32.0); MCHC 34.2 g/dL (32.0-37.0); MCV 96.6 fL (80.0-97.0); Monocytes # (A) 0.12 10*3/uL (0.20-1.00); Monocytes % (A) 2.0 %; Neutrophils # (A) 5.12 10*3/uL (1.80-7.70); Neutrophils % (A) 84.6 %; Platelet Count 302 10*3/uL (140-440); RBC 4.45 10*6/uL (4.40-5.60); RDW 12.5 % (11.5-14.5); WBC 6.05 10*3/uL (4.50-10.00)
[2024-12-23 20:39] LABS: ALT 22 U/L (4-49); AST 25 U/L (17-59); African American GFR (CKD) >90 (>60 ml/min/1.73 sqM); Albumin 4.3 g/dL (3.5-5.0); Alkaline Phosphatase 63 U/L (38-126); Anion Gap 11 mmol/L; Blood Urea Nitrogen 15 mg/dL (9-20); Calcium 9.1 mg/dL (8.4-10.2); Carbon Dioxide 25 mmol/L (22-30); Chloride 105 mmol/L (98-107); Glucose 149 mg/dL (74-99); Non-African American GFR(CKD) >90 (>60 ml/min/1.73 sqM); Potassium 4.0 mmol/L (3.5-5.1); Sodium 141 mmol/L (137-145); Total Protein 6.7 g/dL (6.3-8.2)
[2024-12-23 20:58] LABS: INR 0.9 (<1.2); Partial Thromboplastin Time 21.5 sec (22.0-30.0); Prothrombin Time 10.3 sec (10.0-12.5)
--- NOTE | 2024-12-23 21:02 | XR ---
EXAMINATION TYPE: XR chest 2V DATE OF EXAM: 12/23/2024 8:42 PM COMPARISON: Chest radiographs from 09/28/2017 CLINICAL INDICATION: Male, 54 years old with history of Tachycardia; [facility] TECHNIQUE: XR chest 2V Frontal and lateral views of the chest. FINDINGS: Lungs/Pleura: There is flattening of the diaphragm with increased lucency of the lungs. No evidence o f pneumothorax, pleural effusion or focal consolidation. Pulmonary vascularity: Unremarkable. Heart/mediastinum: Cardiomediastinal silhouette is unremarkable. Musculoskeletal: No acute osseous pathology. IMPRESSION: 1. No acute cardiopulmonary disease process. 2. COPD changes. [facility], , 12/23/2024 9:00 PM
--- NOTE | 2024-12-23 23:17 | CT ---
EXAM: CT Angiography Chest With Intravenous Contrast CLINICAL HISTORY: Elevated D-dimer TECHNIQUE: Axial computed tomographic angiography images of the chest with intravenous contrast. CTDI is 16 mGy and DLP is 238.5 mGy-cm. This CT exam was performed using one or more of the following dose reduction techniques: automated exposure control, adjustment of the mA and/or kV according to patient size, and/or use of iterative reconstruction technique. 3D and MIP reconstructed images were created and reviewed. COMPARISON: 09/29/2017. FINDINGS: Pulmonary arteries: No pulmonary embolism. Aorta: No thoracic aortic aneurysm or dissection. Lungs: No consolidation. Mild bilateral lung apical scarring. Minimal bibasilar scarring and emphysematous changes. Pleural space: No pleural effusion. No pneumothorax. Heart: No cardiomegaly. No pericardial effusion. No evidence of RV dysfunction. Bones/joints: No acute fracture. Degenerative changes of the spine. Soft tissues: Unremarkable. Lymph nodes: Unremarkable. No enlarged lymph nodes. IMPRESSION: No pulmonary embolism. No aortic aneurysm or dissection. Minimal emphysematous changes and scarring.
[2024-12-23 23:32] VITALS: BP 132/68; PULSE 91; RESP 16; TEMP 98.1
== END 2024-12-23 23:32 | disposition home or self-care (01) ==
LOC: EC 17:50
DX: R00.2 Palpitations (principal); R00.0 Tachycardia, unspecified; Z86.73 Personal history of transient ischemic attack (TIA), and cerebral infarction without residual deficits; Z87.891 Personal history of nicotine dependence; Z88.0 Allergy status to penicillin; Z88.1 Allergy status to other antibiotic agents
CPT/HCPCS: 36415; 93005; 85379; 80053; 83605; 84484; 85025; 85610; 85730; 71046; 71275; 99285; Q9967